=== PATIENT | female | born 1955 | race Caucasian/White ===

== ENCOUNTER → 2020-10-03 | Outpatient (CLI) | payer OTHER ==
[~2020-10-03] MED LIST: ACIDCAP9; BIOT1000 PO; CART240C3 PO; CIDA500T2 PO; DILT240C28; ELIQ5TAB PO; HYDR12.55 PO; METF10004 PO; ONGL1TAB9 PO; OXYB5TAB10; POTATAB PO
--- NOTE | 2020-10-03 15:04 | REP ---
INDICATION: CALCULUS OF KIDNEY. COMPARISON: None. FINDINGS: KUB shows the intestinal gas pattern to be nonspecific. The organ silhouettes insofar as delineated are unremarkable. There is no evidence of free intraperitoneal air. A double pigtail stent is seen on the right the proximal portion of which is in the region of the renal pelvis and the distal portion which is seen in the urinary bladder. IMPRESSION: As above <Electronically signed by Ranjeet Wood > 10/03/20 1500
== END ==
LOC: M PLAIMG 12:53
PROVIDERS: ATTEND Nurse Practitioner Family
DX: N20.0 Calculus of kidney (principal); Z96.0 Presence of urogenital implants
CPT/HCPCS: 74018; G0463

== ENCOUNTER → 2020-10-16 | Outpatient (REF) | payer OTHER ==
[2020-10-16 13:50] LABS: APPEARANCE, URINE TURBID (CLEAR); BACTERIA, URINE AUTO 3+ (NEGATIVE); BILIRUBIN, URINE AUTO NEGATIVE (NEGATIVE); BLOOD, URINE BLOOD 3+ (NEGATIVE); COLOR, URINE AMBER (YELLOW); GLUCOSE, URINE (UA) AUTO NEGATIVE (NEGATIVE); KETONE, URINE AUTO NEGATIVE (NEGATIVE); LEUKOCYTE ESTERASE, URINE AUTO 3+ (NEGATIVE); MUCUS, URINE SMALL (NEGATIVE); NITRITE, URINE AUTO NEGATIVE (NEGATIVE); PROTEIN, URINE AUTO 3+ mg/dL (NEGATIVE); RBC, URINE AUTO TNTC /HPF (0-3); SPECIFIC GRAVITY URINE AUTO 1.015 (1.002-1.035); SQUAMOUS EPITHELIAL CELL UR AU 2 /HPF (0-6); UROBILINOGEN, URINE AUTO 0.2 mg/dL (0.0-2.0); WBC, URINE AUTO TNTC /HPF (0-3)
== END ==
LOC: M SMT 12:51
PROVIDERS: ATTEND Nurse Practitioner Women's Health
DX: N20.0 Calculus of kidney (principal)

== ENCOUNTER 2020-10-17 11:31 | Inpatient (IN) | payer OTHER ==
[~2020-10-17] VITALS: Ht 160 cm; Wt 103.4 kg
[2020-10-17] MEDS ORDERED: ONDANSETRON 4MG/2ML VIAL IV ONE (16:55)
[2020-10-17] MEDS ORDERED: NS 1,000 ML IV ONE (16:55)
[2020-10-17] MEDS ORDERED: MORPHINE 4 MG/ML 1ML VIAL/SYRINGE (J2270) IV ONE (17:00)
[2020-10-17 17:39] LABS: BASO % 0.2 % (0.0-1.0); EOS % 0.2 % (0.0-3.0); HEMATOCRIT 36.1 % (36.0-47.0); HEMOGLOBIN 10.9 g/dl (12.0-15.5); LYMPH # 0.8 10^3/uL (1.5-5.0); LYMPH % 4.3 % (24.0-44.0); MEAN CORPUSCULAR HEMOGLOBIN 20.1 pg (27.0-33.0); MEAN CORPUSCULAR HGB CONC 30.2 g/dl (32.0-36.5); MEAN CORPUSCULAR VOLUME 66.5 fl (80.0-96.0); MONO # 1.5 10^3/uL (0.0-0.8); MONO % 7.8 % (2.0-8.0); NEUTROPHILS # 16.3 10^3/uL (1.5-8.5); NEUTROPHILS % 86.1 % (36.0-66.0); PLATELET COUNT, AUTOMATED 268 10^3/uL (150-450); RED BLOOD COUNT 5.43 10^6/uL (4.00-5.40); WHITE BLOOD COUNT 18.9 10^3/uL (4.0-10.0)
[2020-10-17 18:08] LABS: ALBUMIN 2.3 GM/DL (3.2-5.2); ALT/SGPT 22 U/L (12-78); BILIRUBIN,DIRECT 0.2 MG/DL (0.0-0.2); BILIRUBIN,TOTAL 0.5 MG/DL (0.2-1.0); BLOOD UREA NITROGEN 70 MG/DL (7-18); CALCIUM LEVEL 9.2 MG/DL (8.8-10.2); CARBON DIOXIDE LEVEL 21 MEQ/L (21-32); CHLORIDE LEVEL 100 MEQ/L (98-107); CK-MB VALUE MASS < 1.0 NG/ML (<3.6); CPK CREATINE PHOSPHOKINASE 28 U/L (26-192); CREATININE FOR GFR 3.38 MG/DL (0.55-1.30); GLOMERULAR FILTRATION RATE 14.4 (>45); GLUCOSE, FASTING 87 MG/DL (70-100); LIPASE 159 U/L (73-393); MB/CK RELATIVE INDEX 3.57 (< OR =4); POTASSIUM SERUM 3.8 MEQ/L (3.5-5.1); SODIUM LEVEL 134 MEQ/L (136-145); TROPONIN I 0.16 NG/ML (< 0.10)
[2020-10-17] MEDS ORDERED: cefTRIAXone SOD 2 GM in D5W MINI-BAG PLUS 50 ML IV ONE (18:20)
--- NOTE | 2020-10-17 18:22 | REPVR ---
PROCEDURE INFORMATION: Exam: CT Abdomen And Pelvis Without Contrast Exam date and time: 10/17/2020 5:03 PM Age: 65 years old Clinical indication: Abdominal pain; Flank; Right; Additional info: Right flank pain; HX of stones with stent placed TECHNIQUE: Imaging protocol: Computed tomography of the abdomen and pelvis without contrast. Radiation optimization: All CT scans at this facility use at least one of these dose optimization techniques: automated exposure control; mA and/or kV adjustment per patient size (includes targeted exams where dose is matched to clinical indication); or iterative reconstruction. COMPARISON: CR Abdomen,Flat Plate KUB 10/03/2020 1:58 PM FINDINGS: Lungs: There is discoid atelectasis in the lung bases. Heart: The heart is top-normal in size and there is no pericardial effusion. Liver: Normal appearing liver. Gallbladder and bile ducts: The patient is status post cholecystectomy. Pancreas: Normal pancreas. Spleen: Normal spleen. Adrenal glands: Normal adrenal glands. Kidneys and ureters: There is a 6 mm calcified stone lower pole the right kidney. There is a bubble of air in the upper pole collecting system right kidney. There is an 8 mm calcified stone lower pole of the left kidney. A right-sided stent is in place and coiled in the lower portion of the right renal pelvis following the right ureter and coiled within the lower portion of the urinary bladder. There is hazy increased density along the course of the right ureter and suspicious for changes of pyelonephritis and ureteritis. There is a lobular area of the upper pole the right kidney probably the result of a cyst. However, the patient should have a CT scan with IV contrast to ensure that this is a cyst and exclude any possibility of a solid mass. The inflammation following the right ureter also contacts the tip of the appendix. Stomach and bowel: Unremarkable. No obstruction. No mucosal thickening. Appendix: No evidence of appendicitis. Intraperitoneal space: There is no evidence of pneumoperitoneum. Vasculature: There is calcification in narrowing at the origin of the SMA and both renal arteries. There is prominent calcification of the aorta consistent with severe atherosclerotic changes. Lymph nodes: Unremarkable. No enlarged lymph nodes. Urinary bladder: There are small bubbles of air within the urinary bladder. Reproductive: Unremarkable as visualized. Bones/joints: There is anterior osteophyte formation throughout the lumbar spine. Soft tissues: Unremarkable. IMPRESSION: 1. There is a stent within the right ureter. 2. 6 mm calcified stone lower pole the right kidney and 8 mm calcified stone lower pole left kidney. 3. Hazy stranding density along the right renal pelvis and following the right ureter is probably secondary to ureteritis and pyelonephritis. No evidence of obstruction at this time. 4. Lobulation of the border of the right kidney could be a cyst. To exclude a solid mass recommend CT scan with contrast. COMMENTS: Consistent with the [employer]'s Incidental Findings Committee white paper (J Am Yamilet Radiol 2018): Any incidental renal lesion less than 1 cm or classified as too small to characterize, or any incidental cystic renal lesion characterized as simple-appearing, is likely benign. No follow-up imaging is recommended for these lesions per consensus recommendations based on imaging criteria. Electronically signed by: Jj Anglin On 10/17/2020 18:21:43 PM
[2020-10-17] MEDS: NS 1,000 ML IV SCH ×2 (18:51→22:20)
--- NOTE | 2020-10-17 19:07 | ECGEPIP ---
[facility] - ED Test Date: 2020-10-17 Pat Name: VIVIAN LEGER Department: Room: - Gender: Female Critical Care Unit Nurse: RIANNA : 1955 Requested By: TEOFILO BALL Order Number: [id number] Reading MD: Karely Raymond Measurements Intervals [place] Rate: 112 P: CT: QRS: 44 QRSD: 92 T: -82 QT: 320 QTc: 436 Interpretive Statements Atrial fibrillation with rapid ventricular response Nonspecific ST and T wave abnormality No prior Electronically Signed on 10-17-2020 19:07:07 EDT by Karely Raymond
[2020-10-17] MEDS ORDERED: HOME MED LIST COMPLETE! XX SCH (19:50)
[2020-10-17 20:24] LABS: MB/CK RELATIVE INDEX 3.12 (< OR =4); TROPONIN I 0.17 NG/ML (< 0.10)
[2020-10-17] MEDS ORDERED: MORPHINE 2 MG/ML 1ML VIAL (J2270) IV PRN (21:00)
[2020-10-17] MEDS: APIXABAN 5 MG TAB (ELIQUIS) PO SCH (21:00)
[2020-10-17 21:16] LABS: RSV AMPLIFICATION NEGATIVE (NEGATIVE)
--- NOTE | 2020-10-17 22:15 | HPEPDOC ---
General Date of Admission Oct 17, 2020 at 20:41 Date of Service: Oct 17, 2020 Chief Complaint Right flank pain, pain with urination, blood in urine Source: Patient, Old records Exam Limitations: No limitations Timing/Duration: Day(s), Intermittent Severity: Moderate History of Present Illness Ms. Neal is a very pleasant 65 year old female with past medical history of a. fib s/p cardiac ablation and nephrolithiasis as well as ureteral stone s/p stent placement presented to the ED due to right flank and groin pain for about a month and fever, chills, hematuria, dysuria, , urinary hesitation, and diarr hea that started since 10/14/2020. She said that she had right stent placed in [facility] on 09/11/2020, and that due to insurance reasons, she established care with [facility] urology center later on. She is planned to have uretroscopy on 10/25/20, and she said the stent is planed to be removed on that day. Right flank pain is a stabbing, intermittent, 9/10 pain with alleviating factor of Tylenol or morphine; aggravating factor as laying on left side and while having bowel movement. She urinates about 3 times a day with small amount of urine, less frequent than usual. She drinks at least 0.5 gallon per day. She had a straight cath yesterday at the urology office. Denies recent ntibiotics use, sick contact, travel history. She said she had colonoscopy done in [place] years ago without concerns including diverticulosis and a negative cologuard within 3 years. She denies prolonged immobilazation after stent surgery Home Medications Scheduled Apixaban (Eliquis) 5 Mg Tablet, 5 MG PO BID, (Reported) Biotin (Biotin) 1 Mg Tablet, 1 MG PO DAILY, (Reported) Diltiazem HCl (Cartia Xt) 240 Mg Cap.er.24h, 240 MG PO DAILY, (Reported) Glucosamine/Chondr Tellez A Sod (Cidaflex Tablet) 1 Each Tablet, 1 TAB PO BID, (Reported) Hydrochlorothiazide (Hydrochlorothiazide) 12.5 Mg Tablet, 12.5 MG PO DAILY, (Reported) Metformin HCl (Metformin HCl) 1,000 Mg Tablet, 1,000 MG PO BID, (Reported) Potassium Gluconate (Potassium Gluconate) 99 Mg Tablet.er, 99 MG PO DAILY, (Reported) Saxagliptin HCl (Onglyza) 5 Mg Tablet, 5 MG PO DAILY, (Reported) Allergies Coded Allergies: amiodarone (Verified Allergy, Mild, RASH, 10/15/20) rivaroxaban (Verified Allergy, Mild, RASH, 10/15/20) Past Medical History Medical History Diabetes mellitus type 2 Atrial fibrillation Hypertension Bilateral shoulder and hip osteoarthritis Nephrolithiasis/ureteral stone Surgical History Stent placement in 2013 for calculus Complete hysterectomy Cardiac ablation Cyst removal from ankle Right elbow repair surgery Family History Mother has type 2 diabetes mellitus Father had kidney malignancy and has one kidney removed Social History * Smoker: Denies, former Smoker (Quit 22 years ago) Alcohol: occationally Drugs: marijuana (marijuna guming) Recent Travel/Sick Contacts: Denies: Recent travel, Recent sick contacts lives at home with partner A-FIB/CHADSVASC A-FIB History Current/History of A-Fib/PAF?: Yes Current PO Anticoag Therapy: Yes Age/Risk Factor Scoring CHADSVASC: CHADSVASC Response (Comments) Value Age Risk Factor Age 65-74 years old 1 Gender Risk Factor Female 1 Hx of CHF No 0 Hx of HTN Yes 1 Hx of Stroke/TIA/or VTE No 0 Hx of Diabetes Yes 1 Hx of Vascular Disease No 0 Total 4 Review of Systems Constitutional: Reports: Chills, Fever Pulmonary: Denies: Dyspnea, Cough Cardiovascular: Denies: Chest Pain, Palpitations, Edema Gastrointestinal: Reports: Abdominal Pain (right lower pelvic region, and in bilateral lower quadrants while having bowel movement), Diarrhea, Hematochezia; Denies: Nausea, Vomiting, Constipation, Melena Genitourinary: Reports: Dysuria, Hematuria (urinary hesitancy), Other Symptoms; Denies: Frequency Endocrine: Denies: Polyuria Musculoskeletal: Reports: Joint Pain (chronic bilateral shoulder and hip pain) Neurological: Denies: Weakness, Numbness Psych: Denies: Thoughts of Self Harm, Thoughts of Harming Other Physical Examination General Exam: Positive: Alert, Mild Distress Eye Exam: Positive: Conjunctiva & lids normal; Negative: Sclera icteric ENT Exam: Positive: Atraumatic Neck Exam: Positive: Supple Chest Exam: Positive: Clear to auscultation, Normal air movement; Negative: Rales, Rhonchi, Wheezing Heart Exam: Positive: Tachycardic, Irregular Rhythm; Negative: Murmurs Abdomen Exam: Positive: Normal bowel sounds, Soft; Negative: Tenderness Extremity Exam: Positive: Other (negative phoebe's sign bilaterally); Negative: Edema, Tenderness, Swelling Skin Exam: Positive: Nl turgor and temperature; Negative: Breakdown Neuro Exam: Positive: Normal Speech, Normal Tone Psych Exam: Positive: Mental status NL, Mood NL, Memory Intact, Oriented x 3 Vital Signs Vital Signs Date Time Temp Pulse Resp B/P (MAP) Pulse Ox O2 Delivery O2 Flow Rate FiO2 10/17/20 21:31 122 10/17/20 21:30 94/59 (71) 10/17/20 20:46 89 10/17/20 18:46 18 Nasal Cannula 4.0 10/17/20 11:33 99.3 Laboratory Data Labs 24H Laboratory Tests 2 10/17/20 17:14: Immature Granulocyte % (Auto) 1.4, Neutrophils (%) (Auto) 86.1H, Lymphocytes (%) (Auto) 4.3L, Monocytes (%) (Auto) 7.8, Eosinophils (%) (Auto) 0.2, Basophils (%) (Auto) 0.2, Neutrophils # (Auto) 16.3H, Lymphocytes # (Auto) 0.8L, Monocytes # (Auto) 1.5H, Eosinophils # (Auto) 0.0, Basophils # (Auto) 0.0, Nucleated Red Blood Cells % (auto) 0.0, Anion Gap 13, Glomerular Filtration Rate 14.4L, Lactic Acid Level 2.0, Calcium Level 9.2, Total Bilirubin 0.5, Direct Bilirubin 0.2, Aspartate Amino Transf (AST/SGOT) 18, Alanine Aminotransferase (ALT/SGPT) 22, Alkaline Phosphatase 55, Total Creatine Kinase 28, Creatine Kinase MB < 1.0, Creatine Kinase MB Relative Index 3.57, Troponin I 0.16H, Total Protein 7.0, Albumin 2.3L, Albumin/Globulin Ratio 0.5L, Lipase 159 10/17/20 17:33: Urine Color YELLOW, Urine Appearance TURBIDH, Urine pH 5.0, Urine Specific [place] 1.011, Urine Protein 2+H, Urine Glucose (UA) NEGATIVE, Urine Ketones NEGATIVE, Urine Blood 3+H, Urine Nitrite NEGATIVE, Urine Bilirubin NEGATIVE, Urine Urobilinogen 0.2, Urine Leukocyte Esterase 3+H, Urine WBC (Auto) TNTCH, Urine RBC (Auto) TNTCH, Urine Hyaline Casts (Auto) 0, Urine Bacteria (Auto) 3+H, Urine Squamous Epithelial Cells 0, Urine Amorphous Sediment SMALLH, Urine Sperm (Auto) 10/17/20 19:36: Coronavirus (COVID-19)(PCR) NEGATIVE, Influenza Type A (RT-PCR) NEGATIVE, Influenza Type B (RT-PCR) NEGATIVE, Respiratory Syncytial Virus (PCR) NEGATIVE 10/17/20 19:41: Total Creatine Kinase 32, Creatine Kinase MB 1.0, Creatine Kinase MB Relative Index 3.12, Troponin I 0.17H CBC/BMP Laboratory Tests 10/17/20 17:14 Microbiology Microbiology 10/17/20 Urine Culture, Received Pending 10/17/20 Blood Culture, Received Pending 10/17/20 Blood Culture, Received Pending Assessment/Plan 1. Right complicated UTI likely associated with ureteral stent and nephrolithiasis -dysuria, urinary hesitancy, right flank pain, fever, chills -UA indicated UTI, urine culture pending -Abd CT showed a stent within the right ureter, a 6 mm calcified stone right kidney,a 8 mm calcified stone left kidney; also showed hazy stranding density along right renal pelvis and right ureter, probably secondary to ureteritis and pyelonephritis -Urology consult with Dr. Hawley, and we appreciate his advice and assist in patient care. He recommends antibiotics for complicated UTI and IV fluid hydration -IV ceftriaxone, IV fluid hydration, pain control, tylenol PRN 2. JACKIE likely due to pyelonephritis -GFR 14.4 -FeUrea, osmolality, and serum osmolality ordered -IV fluid hydration -consider nephrology consult in the morning 3. Diabetes mellitus type 2 -hold home medication - insulin, glucose checks, and hypglycemia protocol 4. Hypertension -hold home med hydrochlorthiazide due to JACKIE -Continue home med Diltiazem 5. A. fib -denies chest pain, palpitation, or dyspnea. Blood pressure stable -Continue home med Diltiazem and Eliquis -telemonitoring. If RVR, will add on rate-control medication 6. Questionable right kidney cyst -CT abd/pelvis showed a lobulation of the border of right kidney could be a cyst, and a CT scan with contrast was recommended -Consider CT abd/pelvis with contrast in the morning or when renal function improves DVT prophylaxis: patient on home med eliquis Plan / VTE VTE Prophylaxis Ordered?: Yes (Eliquis(home med)) GME ATTESTATION GME ATTESTATION My faculty preceptor for this patient encounter was physically present during the encounter and was fully available. All aspects of the patient interview, examination, medical decision making process, and medical care plan development were reviewed and approved by the faculty preceptor. The faculty preceptor is aware and concurs with the plan as stated in the body of this note and will attest to such by his/her cosignature. ATTENDING NOTE ISajan, have independently examined this patient and performed my own physical exam, as well as reviewed the documentation and edited where necessary. I have discussed in detail with the resident / student the findings and plan of treatment as documented by the resident / student and edited their note. I agree with their findings and treatment plan and have edited their documentation. I will continue to follow the patient during this hospital stay. GRACE PRUITT DO Oct 17, 2020 22:15 KALPANA THOMAS MD Oct 19, 2020 06:26
[2020-10-17] MEDS ORDERED: GLUCAGON INJ 1MG VIAL SC PRN (22:20)
[2020-10-17] MEDS ORDERED: GLUCOSE 4GM CHEW TABLET PO PRN (22:20)
[2020-10-17] MEDS ORDERED: DEXTROSE 50% 50 ML SYRINGE IV PRN (22:20)
[2020-10-17 23:27] VITALS: BP 128/58
[2020-10-18] VITALS: BP_SYST 105; BP_SYST 120; BP_DIAS 62
[2020-10-18 00:04] LABS: CALCIUM LEVEL 8.1 MG/DL (8.8-10.2); CREATININE FOR GFR 3.02 MG/DL (0.55-1.30); GLOMERULAR FILTRATION RATE 16.4 (>45); POTASSIUM SERUM 3.7 MEQ/L (3.5-5.1)
[2020-10-18] MEDS: ACETAMINOPHEN TAB 650MG DOSE (2X325MG) PO PRN ×3 (02:21→20:16)
[2020-10-18 04:00] VITALS: BP 124/62
[2020-10-18 05:59] LABS: HEMATOCRIT 33.2 % (36.0-47.0); HEMOGLOBIN 9.7 g/dl (12.0-15.5); MEAN CORPUSCULAR HGB CONC 29.2 g/dl (32.0-36.5); MEAN CORPUSCULAR VOLUME 68.3 fl (80.0-96.0); PLATELET COUNT, AUTOMATED 245 10^3/uL (150-450); RED BLOOD COUNT 4.86 10^6/uL (4.00-5.40); WHITE BLOOD COUNT 14.1 10^3/uL (4.0-10.0)
[2020-10-18 06:22] LABS: CALCIUM LEVEL 8.1 MG/DL (8.8-10.2); CREATININE FOR GFR 2.59 MG/DL (0.55-1.30); GLOMERULAR FILTRATION RATE 19.6 (>45); POTASSIUM SERUM 3.5 MEQ/L (3.5-5.1)
[2020-10-18] MEDS: HumaLOG INSULIN (NovoLOG) PER UNIT SC SCH ×4 (07:30→20:18)
[2020-10-18 08:00] VITALS: BP 117/78
--- NOTE | 2020-10-18 08:00 | SMCUROLCON ---
Urology Consultation General Date of Consultation 10/18/20 Reason For Consultation asked to see re complicated uti History of Present Illness Pt had right stent placed outside of [place] for small distal right ureteral stone. Transferred care to [facility] for insurance reasons. Seen in office on 10/03/20 and ureteroscopy was scheduled. Now in [facility] with complicated uti, right pyelonephritis. Ct reviewed. Stent in proper position. Stone in each kidney. No hydronephrosis. No right ureteral stone noted. Wbc elevated and creatinine elevated. Admitted for complicated uti and urology asked to see. Medications Current Medications Current Medications Medications (Trade) Dose Ordered Sig/Moses Route PRN Reason Start Time Stop Time Status Last Admin Dose Admin Acetaminophen (Tylenol Tab) 650 mg Q4H PRN PO MILD PAIN or TEMP > 101 10/17/20 20:45 10/18/20 02:21 Apixaban (Eliquis) 5 mg BID PO 10/17/20 21:00 Ceftriaxone Sodium 1 gm/ Dextrose 50 ml @ 100 mls/hr Q24H IV 10/18/20 18:00 Dextrose (Dextrose 50%) 25 ml ASDIRECTED PRN IV SEE LABEL COMMENTS 10/17/20 22:20 Diltiazem HCl (Cardizem Cd) 240 mg DAILY PO 10/18/20 09:00 Glucagon (Glucagon) 1 mg ASDIRECTED PRN SC SEE LABEL COMMENTS 10/17/20 22:20 Glucose (Glucose) 16 GM ASDIRECTED PRN PO SEE LABEL COMMENTS 10/17/20 22:20 Home Med (Home Med List Complete!) ASDIRECTED XX 10/17/20 19:50 10/17/20 19:52 DC Insulin Human Lispro (HumaLOG INSULIN) See Protocol Table AC SC 10/18/20 07:30 Insulin Human Lispro (HumaLOG INSULIN) See Protocol Table QHS SC 10/18/20 21:00 Morphine Sulfate (Morphine Sulfate Inj) 2 mg Q4HP PRN IV MODERATE/SEVERE PAIN (PS 5-10) 10/17/20 21:00 Sodium Chloride 1,000 ml @ 150 mls/hr Q6H40M IV 10/18/20 00:00 10/18/20 00:00 Sodium Chloride 1,000 ml @ 250 mls/hr Q4H IV 10/17/20 18:20 10/18/20 01:42 DC 10/17/20 18:51 Allergies Allergies: Coded Allergies: amiodarone (Verified Allergy, Mild, RASH, 10/15/20) rivaroxaban (Verified Allergy, Mild, RASH, 10/15/20) Vital Signs/I&O Vital Signs Date Time Temp Pulse Resp B/P (MAP) Pulse Ox O2 Delivery O2 Flow Rate FiO2 10/18/20 04:00 2.0 10/18/20 04:00 98.6 86 16 124/62 (82) 95 Nasal Cannula I&O- Last 24 Hours up to 6 AM 10/18/20 05:59 Intake Total 1810 ml Output Total 350 ml Balance 1460 ml Laboratory Data 24H Labs Laboratory Tests 2 10/17/20 17:14: Immature Granulocyte % (Auto) 1.4, Neutrophils (%) (Auto) 86.1H, Lymphocytes (%) (Auto) 4.3L, Monocytes (%) (Auto) 7.8, Eosinophils (%) (Auto) 0.2, Basophils (%) (Auto) 0.2, Neutrophils # (Auto) 16.3H, Lymphocytes # (Auto) 0.8L, Monocytes # (Auto) 1.5H, Eosinophils # (Auto) 0.0, Basophils # (Auto) 0.0, Nucleated Red Blood Cells % (auto) 0.0, Anion Gap 13, Glomerular Filtration Rate 14.4L, Lactic Acid Level 2.0, Calcium Level 9.2, Total Bilirubin 0.5, Direct Bilirubin 0.2, Aspartate Amino Transf (AST/SGOT) 18, Alanine Aminotransferase (ALT/SGPT) 22, Alkaline Phosphatase 55, Total Creatine Kinase 28, Creatine Kinase MB < 1.0, Creatine Kinase MB Relative Index 3.57, Troponin I 0.16H, Total Protein 7.0, Albumin 2.3L, Albumin/Globulin Ratio 0.5L, Lipase 159 10/17/20 17:33: Urine Color YELLOW, Urine Appearance TURBIDH, Urine pH 5.0, Urine Specific [place] 1.011, Urine Protein 2+H, Urine Glucose (UA) NEGATIVE, Urine Ketones NEGATIVE, Urine Blood 3+H, Urine Nitrite NEGATIVE, Urine Bilirubin NEGATIVE, Uri ne Urobilinogen 0.2, Urine Leukocyte Esterase 3+H, Urine WBC (Auto) TNTCH, Urine RBC (Auto) TNTCH, Urine Hyaline Casts (Auto) 0, Urine Bacteria (Auto) 3+H, Urine Squamous Epithelial Cells 0, Urine Amorphous Sediment SMALLH, Urine Sperm (Auto) 10/17/20 19:36: Coronavirus (COVID-19)(PCR) NEGATIVE, Influenza Type A (RT-PCR) NEGATIVE, Influenza Type B (RT-PCR) NEGATIVE, Respiratory Syncytial Virus (PCR) NEGATIVE 10/17/20 19:41: Total Creatine Kinase 32, Creatine Kinase MB 1.0, Creatine Kinase MB Relative Index 3.12, Troponin I 0.17H 10/17/20 23:33: Anion Gap 9, Glomerular Filtration Rate 16.4L, Osmolality 301, Calcium Level 8.1L, Troponin I 0.13#H 10/18/20 05:29: Anion Gap 8, Glomerular Filtration Rate 19.6L, Calcium Level 8.1L, Nucleated Red Blood Cells % (auto) 0.0 CBC/BMP Laboratory Tests 10/17/20 17:14 10/17/20 23:33 10/18/20 05:29 Microbiology Microbiology 10/17/20 Urine Culture, Received Pending 10/17/20 Blood Culture, Received Pending 10/17/20 Blood Culture, Received Pending Assessment Complicated uti. Urine cx 10/16/20 obtained in the office grew E coli sensitive to Rocephin, nitrofurantoin and Bactrim but no Levaquin. Pt currently on Rocephin. Wbc and creatinine have come down already. Plan Treat complicated uti. Will check as to when ureteroscopy is scheduled. Will see pt later today. thank you [phone] MELONIE TONY MD Oct 18, 2020 08:00
[2020-10-18] MEDS: APIXABAN 5 MG TAB (ELIQUIS) PO SCH ×2 (09:00→20:17)
[2020-10-18] MEDS: NS 1,000 ML IV SCH ×3 (10:13→16:12)
--- NOTE | 2020-10-18 10:20 | IPNPDOC ---
Date Seen The patient was seen on 10/18/20. Progress Note pt seen and examined sitting at bedside doesn't look sick states she feels much better than yesterday avss creat elevated but down from admit wbc down cx's pending recent cx E coli sensitive to Rocephin, Macrobid and Bactrim no gu intervention needed continue treatment of complicated uti suspect creatinine will continue to decrease scheduled for surgery in 11/12, ureteroscopy I believe thank you [phone] VS, I&O, 24H, Tara Vital Signs/I&O Vital Signs Date Time Temp Pulse Resp B/P (MAP) Pulse Ox O2 Delivery O2 Flow Rate FiO2 10/18/20 10:12 103 117/78 10/18/20 08:00 97.0 16 91 Nasal Cannula 2.0 I&O- Last 24 Hours up to 6 AM 10/18/20 06:00 Intake Total 1990 ml Output Total 425 ml Balance 1565 ml Laboratory Data 24H LABS Laboratory Tests 2 10/17/20 17:14: Immature Granulocyte % (Auto) 1.4, Neutrophils (%) (Auto) 86.1H, Lymphocytes (%) (Auto) 4.3L, Monocytes (%) (Auto) 7.8, Eosinophils (%) (Auto) 0.2, Basophils (%) (Auto) 0.2, Neutrophils # (Auto) 16.3H, Lymphocytes # (Auto) 0.8L, Monocytes # (Auto) 1.5H, Eosinophils # (Auto) 0.0, Basophils # (Auto) 0.0, Nucleated Red Blood Cells % (auto) 0.0, Anion Gap 13, Glomerular Filtration Rate 14.4L, Lactic Acid Level 2.0, Calcium Level 9.2, Total Bilirubin 0.5, Direct Bilirubin 0.2, Aspartate Amino Transf (AST/SGOT) 18, Alanine Aminotransferase (ALT/SGPT) 22, Al kaline Phosphatase 55, Total Creatine Kinase 28, Creatine Kinase MB < 1.0, Creatine Kinase MB Relative Index 3.57, Troponin I 0.16H, Total Protein 7.0, Albumin 2.3L, Albumin/Globulin Ratio 0.5L, Lipase 159 10/17/20 17:33: Urine Color YELLOW, Urine Appearance TURBIDH, Urine pH 5.0, Urine Specific [place] 1.011, Urine Protein 2+H, Urine Glucose (UA) NEGATIVE, Urine Ketones NEGATIVE, Urine Blood 3+H, Urine Nitrite NEGATIVE, Urine Bilirubin NEGATIVE, Urine Urobilinogen 0.2, Urine Leukocyte Esterase 3+H, Urine WBC (Auto) TNTCH, Urine RBC (Auto) TNTCH, Urine Hyaline Casts (Auto) 0, Urine Bacteria (Auto) 3+H, Urine Squamous Epithelial Cells 0, Urine Amorphous Sediment SMALLH, Urine Sperm (Auto) 10/17/20 19:36: Coronavirus (COVID-19)(PCR) NEGATIVE, Influenza Type A (RT-PCR) NEGATIVE, Influenza Type B (RT-PCR) NEGATIVE, Respiratory Syncytial Virus (PCR) NEGATIVE 10/17/20 19:41: Total Creatine Kinase 32, Creatine Kinase MB 1.0, Creatine Kinase MB Relative Index 3.12, Troponin I 0.17H 10/17/20 23:33: Anion Gap 9, Glomerular Filtration Rate 16.4L, Osmolality 301, Calcium Level 8.1L, Troponin I 0.13#H 10/18/20 05:29: Anion Gap 8, Glomerular Filtration Rate 19.6L, Calcium Level 8.1L, Nucleated Red Blood Cells % (auto) 0.0 CBC/BMP Laboratory Tests 10/17/20 17:14 10/17/20 23:33 10/18/20 05:29 Microbiology Microbiology 10/17/20 Urine Culture, Received Pending 10/17/20 Blood Culture, Received Pending 10/17/20 Blood Culture, Received Pending MELONIE TONY MD Oct 18, 2020 10:20
[2020-10-18 12:00] VITALS: BP 127/63
[2020-10-18 16:00] VITALS: BP 161/87
[2020-10-18] MEDS ORDERED: FAMOTIDINE 20 MG TAB PO PRN (16:30)
[2020-10-18] MEDS: cefTRIAXone SOD 1 GM in D5W MINI-BAG PLUS 50 ML IV SCH (17:16)
--- NOTE | 2020-10-18 19:02 | IPNPDOC ---
Subjective Date Seen The patient was seen on 10/18/20. Subjective Chief Complaint/HPI Mrs. Neal is a 65-year-old female with atrial fibrillation on Eliquis, diabetes mellitus type 2, and history of nephrolithiasis who is here for right flank pain and found to have right pyelonephritis. Patient was seen this morning. She is feeling much better and the pain is improved. Denies any chest pain or shortness of breath. Urology saw patient. No surgical interventions at this time and recommended continue antibiotics. Objective Physical Examination General Exam: Positive: Alert, Cooperative Eye Exam: Negative: Sclera icteric ENT Exam: Positive: Atraumatic Neck Exam: Positive: Supple Chest Exam: Positive: Clear to auscultation Heart Exam: Positive: Rate Normal, Irregular Rhythm Abdomen Exam: Positive: Normal bowel sounds, Soft; Negative: Tenderness Extremity Exam: Negative: Edema Neuro Exam: Positive: Normal Speech Psych Exam: Positive: Mental status NL, Mood NL Assessment /Plan Assessment Mrs. Neal is a 65-year-old female with atrial fibrillation on Eliquis, diabetes mellitus type 2, and history of nephrolithiasis who is here for right flank pain and found to have right pyelonephritis. Right pyelonephritis complicated by nephrolithiasis and right ureteral stent. Urology was consulted, recommendations appreciated. Recommended continuing antibiotics and keeping surgery date of 11/12/2020. We will continue waiting for urine cultures. Plan/VTE VTE Prophylaxis Ordered?: Yes (Eliquis(home med)) Plan 1. Right pyelonephritis complicated by stent and nephrolithiasis Urology consulted, recommendation appreciated No surgical intervention at this time. Keep appointment on 11/12/2020 Continue antibiotics Ceftriaxone day 2 2. JACKIE Patient's baseline creatinine unknown On admission creatinine was 3.38 Creatinine improving with IV fluids 3. Diabetes mellitus type 2 Continue sliding scale insulin and hypoglycemic protocol 4. Hypertension Continue to hold hydrochlorothiazide due to JACKIE Continue diltiazem and metoprolol 5. Atrial fibrillation Continue diltiazem and metoprolol Continue Eliquis 6. GERD Do not have cimetidine here. Will substitute with famotidine 7. DVT prophylaxis Continue Eliquis as there is no procedure Disposition: Pending improvement in renal function and urine culture results VS, I&O, 24H, Fishbone Vital Signs/I&O Vital Signs Date Time Temp Pulse Resp B/P (MAP) Pulse Ox O2 Delivery O2 Flow Rate FiO2 10/18/20 16:00 97.0 100 18 161/87 (111) 92 Nasal Cannula 2.0 I&O- Last 24 Hours up to 6 AM 10/18/20 06:00 Intake Total 1990 ml Output Total 425 ml Balance 1565 ml Laboratory Data 24H LABS Laboratory Tests 2 10/17/20 19:36: Coronavirus (COVID-19)(PCR) NEGATIVE, Influenza Type A (RT-PCR) NEGATIVE, Influenza Type B (RT-PCR) NEGATIVE, Respiratory Syncytial Virus (PCR) NEGATIVE 10/17/20 19:41: Total Creatine Kinase 32, Creatine Kinase MB 1.0, Creatine Kinase MB Relative Index 3.12, Troponin I 0.17H 10/17/20 23:33: Troponin I 0.13#H, Anion Gap 9, Glomerular Filtration Rate 16.4L, Osmolality 301, Calcium Level 8.1L 10/18/20 05:29: Anion Gap 8, Glomerular Filtration Rate 19.6L, Calcium Level 8.1L, Nucleated Red Blood Cells % (auto) 0.0 10/18/20 11:58: Bedside Glucose (Misc Panel) 113 10/18/20 17:04: Bedside Glucose (Misc Panel) 120H CBC/BMP Laboratory Tests 10/17/20 23:33 10/18/20 05:29 Microbiology Microbiology 10/17/20 Urine Culture, Received Pending 10/17/20 Blood Culture - Preliminary, Resulted No growth after 24 hours . All specim... 10/17/20 Blood Culture - Preliminary, Resulted No growth after 24 hours . All specim... JESSICA HANCOCK DO Oct 18, 2020 19:02
[2020-10-18 20:00] VITALS: BP 114/70
--- NOTE | 2020-10-18 21:17 | ECGEPIP ---
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
[2020-10-19] VITALS: BP 120/74
[2020-10-19] MEDS: NS 1,000 ML IV SCH ×2 (01:13→12:29)
[2020-10-19 03:43] LABS: OSMOLALITY URINE 333 MOSM/KG (50-1400)
[2020-10-19 03:53] LABS: UREA NITROGEN RANDOM URINE 443 MG/DL
[2020-10-19 04:00] VITALS: BP 122/66
[2020-10-19 04:04] LABS: HEMATOCRIT 31.9 % (36.0-47.0); HEMOGLOBIN 9.4 g/dl (12.0-15.5); MEAN CORPUSCULAR HGB CONC 29.5 g/dl (32.0-36.5); PLATELET COUNT, AUTOMATED 247 10^3/uL (150-450); RED BLOOD COUNT 4.69 10^6/uL (4.00-5.40); WHITE BLOOD COUNT 11.1 10^3/uL (4.0-10.0)
[2020-10-19 04:25] LABS: CALCIUM LEVEL 8.2 MG/DL (8.8-10.2); CREATININE FOR GFR 1.72 MG/DL (0.55-1.30); GLOMERULAR FILTRATION RATE 31.5 (>45); POTASSIUM SERUM 3.3 MEQ/L (3.5-5.1)
[2020-10-19] MEDS ORDERED: POTASSIUM CHLORIDE 10 MEQ SR TABLET PO ONE ×2 (05:00→09:00)
[2020-10-19 08:00] VITALS: BP 129/79
[2020-10-19] MEDS: HumaLOG INSULIN (NovoLOG) PER UNIT SC SCH ×4 (08:21→20:51)
[2020-10-19] MEDS: APIXABAN 5 MG TAB (ELIQUIS) PO SCH ×2 (08:21→20:29)
[2020-10-19] MEDS: ACETAMINOPHEN TAB 650MG DOSE (2X325MG) PO PRN ×2 (08:22→17:35)
[2020-10-19 08:35] LABS: MAGNESIUM LEVEL 1.8 MG/DL (1.8-2.4)
[2020-10-19] MEDS ORDERED: MAG SULF 1GM/100ML (MAG RUN) 1 GM in IV 1 EA IV ONE (11:00)
[2020-10-19 12:00] VITALS: BP 114/89
[2020-10-19 16:00] VITALS: BP 137/72
[2020-10-19 16:42] LABS: CALCIUM LEVEL 8.4 MG/DL (8.8-10.2); CREATININE FOR GFR 1.47 MG/DL (0.55-1.30); GLOMERULAR FILTRATION RATE 37.7 (>45); POTASSIUM SERUM 3.9 MEQ/L (3.5-5.1)
--- NOTE | 2020-10-19 17:06 | IPNPDOC ---
Subjective Date Seen The patient was seen on 10/19/20. Subjective Chief Complaint/HPI Mrs. Neal is a 65-year-old female with atrial fibrillation on Eliquis, diabetes mellitus type 2, and history of nephrolithiasis who is here for right flank pain and found to have right pyelonephritis. This morning, patient is feeling better. Denies chest pain or dyspnea, but still have occasional pain from the right flank. Urine culture grew E.coli. Patient denies any knowledge of renal dysfunction. Creatinine much improved compared to admission, but still elevated. Rechecked creatinine in the afternoon. Still not at goal. Discussed with patient, and she is okay staying tonight. Objective Physical Examination General Exam: Positive: Alert Eye Exam: Positive: Conjunctiva & lids normal; Negative: Sclera icteric ENT Exam: Positive: Atraumatic Neck Exam: Positive: Supple Chest Exam: Positive: Clear to auscultation; Negative: Rales, Rhonchi, Wheezing Heart Exam: Positive: Rate Normal, Irregular Rhythm Abdomen Exam: Positive: Normal bowel sounds, Soft; Negative: Tenderness Extremity Exam: Negative: Edema Neuro Exam: Positive: Normal Speech Psych Exam: Positive: Mental status NL, Mood NL Assessment /Plan Assessment Mrs. Neal is a 65-year-old female with atrial fibrillation on Eliquis, diabetes mellitus type 2, and history of nephrolithiasis who is here for right flank pain and found to have right pyelonephritis. Right pyelonephritis comp licated by nephrolithiasis and right ureteral stent. Urology was consulted, recommendations appreciated. Recommended continuing antibiotics and keeping surgery date of 11/12/2020. Urine culture grew E.coli. Plan for cefdinir on discharge. Renal function not at goal. Will continue with IVF. Plan/VTE VTE Prophylaxis Ordered?: Yes (Eliquis(home med)) Plan 1. Right pyelonephritis complicated by stent and nephrolithiasis Urology consulted, recommendation appreciated No surgical intervention at this time. Keep appointment on 11/12/2020 Continue antibiotics Ceftriaxone day 3 2. JACKIE Patient's baseline creatinine unknown. Denies any CKD On admission creatinine was 3.38 Creatinine improving with IV fluids 3. Diabetes mellitus type 2 Continue sliding scale insulin and hypoglycemic protocol 4. Hypertension Continue to hold hydrochlorothiazide due to JACKIE Continue diltiazem and metoprolol 5. Atrial fibrillation Continue diltiazem and metoprolol Continue Eliquis 6. GERD Do not have cimetidine here. Will substitute with famotidine 7. DVT prophylaxis Continue Eliquis as there is no procedure Disposition: Pending improvement in renal function. Anticipate creatinine to reach goal by tomorrow morning if continues with IVF. Possible discharge tomorrow morning. VS, I&O, 24H, Fishbone Vital Signs/I&O Vital Signs Date Time Temp Pulse Resp B/P (MAP) Pulse Ox O2 Delivery O2 Flow Rate FiO2 10/19/20 16:00 97.9 67 14 137/72 (93) 93 Room Air 10/19/20 00:00 2.0 I&O- Last 24 Hours up to 6 AM 10/19/20 06:00 Intake Total 1800 ml Output Total 2325 ml Balance -525 ml Laboratory Data 24H LABS Laboratory Tests 2 10/18/20 17:04: Bedside Glucose (Misc Panel) 120H 10/18/20 20:13: Bedside Glucose (Misc Panel) 114 10/19/20 03:35: Nucleated Red Blood Cells % (auto) 0.0, Anion Gap 8, Glomerular Filtration Rate 31.5L, Calcium Level 8.2L, Magnesium Level 1.8 10/19/20 11:30: Bedside Glucose (Misc Panel) 152H 10/19/20 15:48: Anion Gap 8, Glomerular Filtration Rate 37.7L, Calcium Level 8.4L CBC/BMP Laboratory Tests 10/19/20 03:35 10/19/20 15:48 Microbiology Microbiology 10/17/20 Urine Culture - Final, Complete Escherichia Coli 10/17/20 Blood Culture - Preliminary, Resulted No growth after 24 hours . All specim... 10/17/20 Blood Culture - Preliminary, Resulted No growth after 24 hours . All specim... JESSICA HANCOCK DO Oct 19, 2020 17:06
[2020-10-19] MEDS: cefTRIAXone SOD 1 GM in D5W MINI-BAG PLUS 50 ML IV SCH (17:36)
[2020-10-19] MEDS ORDERED: MIRALAX *UNIT DOSE* 17GM PACKET PO PRN (18:00)
[2020-10-19 20:00] VITALS: BP 104/53
[2020-10-19] MEDS: DOCUSATE SODIUM 100MG CAPSULE PO SCH (20:28)
[2020-10-20] VITALS: BP 133/79
[2020-10-20] MEDS: NS 1,000 ML IV SCH (02:03)
[2020-10-20 04:00] VITALS: BP 145/91
[2020-10-20 06:03] LABS: HEMATOCRIT 31.3 % (36.0-47.0); HEMOGLOBIN 9.3 g/dl (12.0-15.5); MEAN CORPUSCULAR HEMOGLOBIN 20.2 pg (27.0-33.0); MEAN CORPUSCULAR HGB CONC 29.7 g/dl (32.0-36.5); PLATELET COUNT, AUTOMATED 294 10^3/uL (150-450); WHITE BLOOD COUNT 11.3 10^3/uL (4.0-10.0)
[2020-10-20 06:24] LABS: CALCIUM LEVEL 8.4 MG/DL (8.8-10.2); CREATININE FOR GFR 1.22 MG/DL (0.55-1.30); GLOMERULAR FILTRATION RATE 46.8 (>45); POTASSIUM SERUM 3.8 MEQ/L (3.5-5.1)
[2020-10-20] MEDS ORDERED: CEFD300C PO (07:53)
[2020-10-20 08:00] VITALS: BP 128/88
[2020-10-20] MEDS: DOCUSATE SODIUM 100MG CAPSULE PO SCH (08:40)
[2020-10-20 08:51] VITALS: BP 128/88
[2020-10-20] MEDS: HumaLOG INSULIN (NovoLOG) PER UNIT SC SCH (08:51)
[2020-10-20] MEDS: APIXABAN 5 MG TAB (ELIQUIS) PO SCH (08:52)
--- NOTE | 2020-10-20 14:35 | DS.PDOC ---
Discharge Summary General Date of Admission Oct 17, 2020 at 20:41 Date of Discharge Oct 20, 2020 Specialist/Consultants [facility], Dr. Perera Discharge Summary PROCEDURES PERFORMED DURING STAY: None ADMITTING DIAGNOSES: 1. Right pyelonephritis complicated by stent and nephrolithiasis 2. Acute kidney injury 3. Diabetes mellitus type 2 4. Hypertension 5. Atrial fibrillation 6. GERD 7. Questionable right kidney cyst DISCHARGE DIAGNOSES: 1. Right pyelonephritis complicated by stent and nephrolithiasis 2. Acute kidney injury 3. Diabetes mellitus type 2 4. Hypertension 5. Atrial fibrillation 6. GERD 7. Questionable right kidney cyst COMPLICATIONS/CHIEF COMPLAINT: Atrial Fibrillation W/ Rvr, Pyelonephritis. HISTORY OF PRESENT ILLNESS: Copied from admitting attending's H&P " Ms. Neal is a very pleasant 65 year old female with past medical history of a. fib s/p cardiac ablation and nephrolithiasis as well as ureteral stone s/p stent placement presented to the ED due to right flank and groin pain for about a month and fever, chills, hematuria, dysuria, , urinary hesitation, and diarrhea that started since 10/14/2020. She said that she had right stent placed in [facility] on 09/11/2020, and that due to insurance reasons, she established care with [facility] later on. She is planned to have uretroscopy on 10/25/20, and she said the stent is planed to be removed on that day. Right flank pain is a stabbing, intermittent, 9/10 pain with alleviating factor of Tylenol or morphine; aggravating factor as laying on left side and while having bowel movement. She urinates about 3 times a day with small amount of urine, less frequent than usual. She drinks at least 0.5 gallon per day. She had a straight cath yesterday at the urology office. Denies recent ntibiotics use, sick contact, travel history. She said she had colonoscopy done in [place] years ago without concerns including diverticulosis and a negative cologuard within 3 years. She denies prolonged immobilazation after stent surgery " HOSPITAL COURSE: Patient was started on IVF and ceftriaxone since patient's previous urine cultures were sensitive to ceftriaxone. Urology evaluated patient. Since patient was clinically improving, did not recommend any intervention. Recommended continuing antibiotics and to keep scheduled surgery date. Patient's urine culture grew E.coli which is sensitive to ceftriaxone. I discharged her with a longer course of antibiotics since the stent was still in place. Patient reports that the stent was planned to be removed on 10/25/20. Ot herwise, renal function improved with IVF. Patient CT abdomen pelvis without contrast did recommend CT abdomen pelvis with contrast as there was a kidney cyst that could be a mass. Since patient's renal function was just recovering, decided to wait on imaging and defer to outpatient. This morning, she felt well. Denied any chest pain or dyspnea. She felt ready for home and was subsequently discharged home. DISCHARGE MEDICATIONS: Please see below. ALLERGIES: Please see below. PHYSICAL EXAMINATION ON DISCHARGE: VITAL SIGNS: Please see below. GENERAL: Comfortable, in no apparent distress. HEENT: Sclera clear. NECK: Supple. RESPIRATORY: Lungs clear to auscultation bilaterally, no rales, wheeze or rhonchi. CARDIOVASCULAR: Regular rate and irregular rhythm. ABDOMEN: Soft, nontender, no guarding or rebound tenderness. Normal bowel sounds. MUSCLE SKELETAL: Muscle strength 5/5 in all extremities. NEUROLOGICAL: CN 312 grossly intact. PSYCHOLOGICAL: Normal mood and affect. LABORATORY DATA: Please see below. IMAGING: Radiologist interpretation CT abdomen pelvis without contrast 1. There is a stent within the right ureter. 2. 6 mm calcified stone lower pole the right kidney and 8 mm calcified stone lower pole left kidney. 3. Hazy stranding density along the right renal pelvis and following the right ureter is probably secondary to ureteritis and pyelonephritis. No evidence of obstruction at this time. 4. Lobulation of the border of the right kidney could be a cyst. To exclude a solid mass recommend CT scan with contrast. PROGNOSIS: Good ACTIVITY: As tolerated. DIET: Carbohydrate consistent diet DISCHARGE PLAN: Home DISPOSITION: Home, Self-Care. DISCHARGE INSTRUCTIONS: 1. Follow-up with your PCP in 1 week. 2. Follow-up with urology in 1 week ITEMS TO FOLLOWUP ON ON OUTPATIENT: 1. Renal function. 2. When renal function stabilizes, consider CT abdomen pelvis with contrast for right kidney cyst to rule out solid mass DISCHARGE CONDITION: Stable. Total time spent on discharge planning, discharge summary, and medication reconciliation: 45 minutes Vital Signs/I&Os Vital Signs Date Time Temp Pulse Resp B/P (MAP) Pulse Ox O2 Delivery O2 Flow Rate FiO2 10/20/20 08:51 102 128/88 10/20/20 08:00 97.9 16 95 Room Air 10/19/20 00:00 2.0 I&O- Last 24 Hours up to 6 AM 10/20/20 05:59 Intake Total 2950 ml Output Total 3025 ml Balance -75 ml Laboratory Data Labs 24H Laboratory Tests 2 10/19/20 15:48: Anion Gap 8, Glomerular Filtration Rate 37.7L, Calcium Level 8.4L 10/19/20 17:37: Bedside Glucose (Misc Panel) 119H 10/19/20 19:50: Bedside Glucose (Misc Panel) 171H 10/20/20 05:35: Anion Gap 7L, Glomerular Filtration Rate 46.8, Calcium Level 8.4L, Nucleated Red Blood Cells % (auto) 0.0 CBC/BMP Laboratory Tests 10/19/20 15:48 10/20/20 05:35 FSBS Laboratory Tests Test 10/19/20 17:37 10/19/20 19:50 Range/Units Bedside Glucose (Misc Panel) 119 171 80-115 MG/DL Microbiology Microbiology 10/17/20 Urine Culture - Final, Complete Escherichia Coli 10/17/20 Blood Culture - Preliminary, Resulted No Growth after 48 hours. All Specime... 10/17/20 Blood Culture - Preliminary, Resulted No Growth after 48 hours. All Specime... Discharge Medications Scheduled Apixaban (Eliquis) 5 Mg Tablet, 5 MG PO BID, (Reported) Biotin (Biotin) 1 Mg Tablet, 1 MG PO DAILY, (Reported) Cefdinir (Cefdinir) 300 Mg Capsule, 300 MG PO BID Diltiazem HCl (Cartia Xt) 240 Mg Cap.er.24h, 240 MG PO DAILY, (Reported) Glucosamine/Chondr Tellez A Sod (Cidaflex Tablet) 1 Each Tablet, 1 TAB PO BID, (Reported) Hydrochlorothiazide (Hydrochlorothiazide) 12.5 Mg Tablet, 12.5 MG PO DAILY, (Reported) Metformin HCl (Metformin HCl) 1,000 Mg Tablet, 1,000 MG PO BID, (Reported) Potassium Gluconate (Potassium Gluconate) 99 Mg Tablet.er, 99 MG PO DAILY, (Reported) Saxagliptin HCl (Onglyza) 5 Mg Tablet, 5 MG PO DAILY, (Reported) Allergies Coded Allergies: amiodarone (Verified Allergy, Mild, RASH, 10/15/20) rivaroxaban (Verified Allergy, Mild, RASH, 10/15/20) JESSICA HANCOCK DO Oct 20, 2020 14:35
== END 2020-10-20 10:00 | disposition home or self-care (01) | DRG 694 ==
LOC: M ED 11:31 → M ED INP 20:41 → M PCU 23:50
PROVIDERS: ADMIT Family Medicine; ATTEND Family Medicine
DX: N20.0 Calculus of kidney (principal); N39.0 Urinary tract infection, site not specified; N17.9 Acute kidney failure, unspecified; I48.91 Unspecified atrial fibrillation; Z96.0 Presence of urogenital implants; Z20.822 Contact with and (suspected) exposure to COVID-19; Z79.84 Long term (current) use of oral hypoglycemic drugs; Z79.899 Other long term (current) drug therapy; Z88.8 Allergy status to other drugs, medicaments and biological substances; E11.9 Type 2 diabetes mellitus without complications; I10 Essential (primary) hypertension; M16.0 Bilateral primary osteoarthritis of hip; M19.012 Primary osteoarthritis, left shoulder; M19.011 Primary osteoarthritis, right shoulder; Z87.891 Personal history of nicotine dependence; K21.9 Gastro-esophageal reflux disease without esophagitis; N28.1 Cyst of kidney, acquired; B96.20 Unspecified Escherichia coli [E. coli] as the cause of diseases classified elsewhere

== ENCOUNTER → 2020-10-23 | Outpatient (REF) | payer MEDICARE ==
[~2020-10-23] MED LIST changes: +CEFD300C PO; +LASI40TA9 PO
[2020-10-23 13:00] LABS: INR 1.1; PROTHROMBIN TIME 14.6 SECONDS (12.7-14.5)
[2020-10-23 13:01] LABS: PARTIAL THROMBOPLASTIN TIME 35.4 SECONDS (25.9-37.0)
== END ==
LOC: M SFHCCLAY 10:36
PROVIDERS: ATTEND Urology
DX: Z01.818 Encounter for other preprocedural examination (principal); N20.0 Calculus of kidney

== ENCOUNTER → 2020-10-23 | Outpatient (CLI) | payer OTHER ==
[~2020-10-23] MED LIST changes: -LASI40TA9 PO
== END ==
LOC: M LABSMTC 09:15
PROVIDERS: ATTEND Anesthesiology
DX: Z01.812 Encounter for preprocedural laboratory examination (principal); Z20.822 Contact with and (suspected) exposure to COVID-19

== ENCOUNTER → 2020-10-23 | Outpatient (CLI) | payer MEDICARE ==
[~2020-10-23] MED LIST changes: +LASI40TA9 PO
== END ==
LOC: M CLY 10:45
PROVIDERS: ATTEND Urology
DX: Z01.818 Encounter for other preprocedural examination (principal); N20.0 Calculus of kidney; R91.8 Other nonspecific abnormal finding of lung field; Z20.822 Contact with and (suspected) exposure to COVID-19
CPT/HCPCS: 71046; 85610; 85730; U0003

== ENCOUNTER 2020-10-25 09:23 | Day surgery (SDC) | payer OTHER ==
[~2020-10-25] VITALS: Ht 160 cm; Wt 96.6 kg
[~2020-10-25 09:23] MED LIST changes: +CONRAY-60 60% 50ML VIAL (Q9961) As Ordered ONE; -LASI40TA9 PO; +LR 1,000 ML IV ONE; +ceFAZolin SOD 2 GM in IV 1 EA IV ONE
[2020-10-25] MEDS ORDERED: LASI40TA9 PO (09:46)
[2020-10-25] MEDS ORDERED: LIDOCAINE 2% 100MG/5ML SDV (FOR ANES.) As Ordered ONE (11:12)
[2020-10-25] MEDS ORDERED: MIDAZOLAM INJ 2MG/2ML VIAL (J2250 PER 1MG) As Ordered ONE (11:12)
[2020-10-25] MEDS ORDERED: propofoL 200 MG/20 ML VIAL As Ordered ONE (11:12)
[2020-10-25] MEDS ORDERED: fentaNYL 100 MCG/2 ML INJECTION As Ordered ONE (11:12)
[2020-10-25] MEDS ORDERED: dexameTHASONE 4 MG/ML 1ML VIAL (J1100 PER 1MG) As Ordered ONE (11:12)
[2020-10-25] MEDS ORDERED: ONDANSETRON 4MG/2ML VIAL As Ordered ONE (11:12)
[2020-10-25] MEDS ORDERED: LIDOCAINE 2% 5ML JELLY UROJET As Ordered ONE (11:54)
[2020-10-25] MEDS ORDERED: ACETAMINOPHEN 1000MG 100ML IV BTL (OFIRMEV) (J0131 PER 10MG) As Ordered ONE (12:49)
[2020-10-25 13:30] VITALS: BP 159/72
[2020-11-01 15:09] LABS: CA Oxalate Dihy 20 % (.); Ca Ox Monohydrate 80 % (.); Size 5x2 mm (.)
== END 2020-10-25 13:45 | disposition home or self-care (01) ==
LOC: M SDC 09:23
PROVIDERS: ATTEND Urology
DX: N20.0 Calculus of kidney (principal); E11.9 Type 2 diabetes mellitus without complications; I48.91 Unspecified atrial fibrillation; I10 Essential (primary) hypertension; Z79.899 Other long term (current) drug therapy; Z87.891 Personal history of nicotine dependence; Z88.8 Allergy status to other drugs, medicaments and biological substances
CPT/HCPCS: 52352; 74420; 82365; 88300; C1769; C1894; J0131; J0690; J1100; J2250; J2405; J3010; Q9961

== ENCOUNTER → 2020-10-31 | Outpatient (REF) | payer MEDICARE ==
[~2020-10-31] MED LIST changes: -CONRAY-60 60% 50ML VIAL (Q9961) As Ordered ONE; +LASI40TA9 PO; -LR 1,000 ML IV ONE; -ceFAZolin SOD 2 GM in IV 1 EA IV ONE
[2020-10-31 16:28] LABS: HEMOGLOBIN A1c 6.7 %
[2020-10-31 16:33] LABS: CREATININE, URINE 76.7 MG/DL; MALB URINE SIEMENS 61.6 MG/L; MAU/CREAT RATIO 80.3 MCG/MG (0.0-30.0)
[2020-10-31 16:37] LABS: CHOLESTEROL RISK RATIO 4.909 (<5)
== END ==
LOC: M SFHCCLAY 09:45
PROVIDERS: ATTEND Family Medicine
DX: E11.9 Type 2 diabetes mellitus without complications (principal)

== ENCOUNTER → 2020-11-08 | Outpatient (CLI) | payer MEDICARE, OTHER ==
[~2020-11-08] MED LIST changes: +ISOVUE-370 76% 100ML VIAL As Ordered ONE
--- NOTE | 2020-11-10 04:57 | REP ---
INDICATION: CYST OF KIDNEY. COMPARISON: 10/17/2020 TECHNIQUE: Axial contrast-enhanced images from the lung bases to the pubic symphysis using 100 cc Isovue 370 intravenous contrast material. Precontrast, arterial phase, and delayed phased images of the abdomen obtained as well as coronal and sagittal reformations. This CT examination was performed using the following dose reduction techniques: Automated exposure control, adjustment of mA and/or kv according to the patient's size, and the use of iterative reconstruction technique. FINDINGS: Right kidney demonstrates congenital lobulations along with areas of cortical scarring/thinning as well as 1 cm simple cyst. There is no perinephric stranding, hydroureteronephrosis, nephroureterolithiasis or obvious right renal mass lesion. Left kidney demonstrates congenital lobulations along with areas of cortical scarring/thinning as well as 8 mm nonobstructing lower pole calculus and 2 subcentimeter simple appearing cysts. There is no perinephric stranding, hydroureteronephrosis, nephroureterolithiasis or obvious left renal mass lesion. Liver, spleen, pancreas, and right adrenal gland are essentially normal. Left adrenal gland suggests small 1 cm benign adenoma versus focal hyperplastic change. The enteric system including stomach, small, and large bowel appears normal. No evidence for obstruction or acute inflammatory process. Normal terminal ileum and appendix are identified in the right lower quadrant. Scattered colonic/sigmoid diverticula noted without acute diverticulitis. Pelvis demonstrates normal bladder and prior hysterectomy. No ascites. No free air. No intraperitoneal or retroperitoneal adenopathy. Abdominal aorta and vasculature demonstrate atherosclerotic changes without aneurysm or dissection. Musculoskeletal structures are intact and without acute osseous abnormality. IMPRESSION: 1. Renal changes as described above including small simple bilateral cysts and 8 mm nonobstructing left renal calculus. 2. Nonacute findings as described above. <Electronically signed by Ed Eason > 11/10/20 [id number]
== END ==
LOC: M RAD 11:39
PROVIDERS: ATTEND Family Medicine
DX: N28.1 Cyst of kidney, acquired (principal); N20.0 Calculus of kidney
CPT/HCPCS: 74178; Q9967

== ENCOUNTER → 2021-02-03 | Outpatient (REF) | payer MEDICARE ==
[~2021-02-03] MED LIST changes: -ISOVUE-370 76% 100ML VIAL As Ordered ONE
[2021-02-03 12:18] LABS: INR 1.27; PROTHROMBIN TIME 16.3 SECONDS (12.7-14.5)
== END ==
LOC: M SFHCCLAY 09:40
PROVIDERS: ATTEND Family Medicine
DX: I48.91 Unspecified atrial fibrillation (principal); Z51.81 Encounter for therapeutic drug level monitoring; Z79.01 Long term (current) use of anticoagulants

== ENCOUNTER → 2021-02-10 | Outpatient (REF) | payer MEDICARE ==
[2021-02-10 12:10] LABS: INR 1.72; PROTHROMBIN TIME 20.5 SECONDS (12.7-14.5)
== END ==
LOC: M SFHCCLAY 08:52
PROVIDERS: ATTEND Family Medicine
DX: I48.91 Unspecified atrial fibrillation (principal); Z79.01 Long term (current) use of anticoagulants; Z51.81 Encounter for therapeutic drug level monitoring

== ENCOUNTER → 2021-02-17 | Outpatient (REF) | payer MEDICARE ==
[2021-02-17 11:48] LABS: INR 1.83; PROTHROMBIN TIME 21.6 SECONDS (12.7-14.5)
[2021-02-17 12:01] LABS: HEMOGLOBIN A1c 6.4 %
[2021-02-17 12:05] LABS: BLOOD UREA NITROGEN 27 MG/DL (7-18); CALCIUM LEVEL 9.1 MG/DL (8.8-10.2); CARBON DIOXIDE LEVEL 31 MEQ/L (21-32); CHLORIDE LEVEL 108 MEQ/L (98-107); CREATININE FOR GFR 0.81 MG/DL (0.55-1.30); GLOMERULAR FILTRATION RATE > 60.0 (>45); GLUCOSE, FASTING 104 MG/DL (70-100); POTASSIUM SERUM 4.5 MEQ/L (3.5-5.1); SODIUM LEVEL 143 MEQ/L (136-145)
== END ==
LOC: M SFHCCLAY 09:17
PROVIDERS: ATTEND Family Medicine
DX: I11.9 Hypertensive heart disease without heart failure (principal); E11.9 Type 2 diabetes mellitus without complications; I48.91 Unspecified atrial fibrillation; Z51.81 Encounter for therapeutic drug level monitoring; Z79.01 Long term (current) use of anticoagulants

== ENCOUNTER → 2021-02-27 | Outpatient (REF) | payer MEDICARE ==
[2021-02-27 15:54] LABS: INR 1.52; PROTHROMBIN TIME 18.7 SECONDS (12.7-14.5)
== END ==
LOC: M SFHCCLAY 10:19
PROVIDERS: ATTEND Family Medicine
DX: I48.91 Unspecified atrial fibrillation (principal); Z51.81 Encounter for therapeutic drug level monitoring; Z79.01 Long term (current) use of anticoagulants

== ENCOUNTER → 2021-08-28 | Outpatient (REF) | payer MEDICARE ==
[2021-08-28 12:09] LABS: HEMOGLOBIN A1c 6.4 %
[2021-08-28 12:12] LABS: BLOOD UREA NITROGEN 21 MG/DL (7-18); CALCIUM LEVEL 9.6 MG/DL (8.8-10.2); CARBON DIOXIDE LEVEL 32 MEQ/L (21-32); CHLORIDE LEVEL 104 MEQ/L (98-107); CHOLESTEROL LEVEL 205 MG/DL (<200); CHOLESTEROL RISK RATIO 4.555 (<5); GLOMERULAR FILTRATION RATE > 60.0 (>45); GLUCOSE, FASTING 88 MG/DL (70-100); HDL CHOLESTEROL 45 MG/DL (>40); LDL CHOLESTEROL 134 MG/DL (<100); NON-HDL-C 160 MG/DL; POTASSIUM SERUM 4.4 MEQ/L (3.5-5.1); SODIUM LEVEL 139 MEQ/L (136-145); TRIGLYCERIDES LEVEL 129 MG/DL (<150)
[2021-08-28 12:34] LABS: CREATININE, URINE 82.8 MG/DL; MALB URINE SIEMENS 19.7 MG/L; MAU/CREAT RATIO 23.7 MCG/MG (0.0-30.0)
== END ==
LOC: M SFHCCLAY 08:48
PROVIDERS: ATTEND Family Medicine
DX: E11.9 Type 2 diabetes mellitus without complications (principal); I11.9 Hypertensive heart disease without heart failure

== ENCOUNTER → 2021-12-22 | Outpatient (CLI) | payer MEDICARE | LOC: M RAD 12:47 | PROVIDERS: ATTEND Physician Assistant Surgical | DX: M16.12 Unilateral primary osteoarthritis, left hip (principal); M70.62 Trochanteric bursitis, left hip; S73.192A Other sprain of left hip, initial encounter; X58.XXXA Exposure to other specified factors, initial encounter; Y92.9 Unspecified place or not applicable; Y93.9 Activity, unspecified; Y99.9 Unspecified external cause status ==

== ENCOUNTER → 2022-02-25 | Outpatient (REF) | payer MEDICARE ==
[2022-02-25 18:44] LABS: BLOOD UREA NITROGEN 17 MG/DL (9-23); CARBON DIOXIDE LEVEL 31 MMOL/L (20-31); CHLORIDE LEVEL 102 MMOL/L (98-107); CREATININE FOR GFR 0.88 MG/DL (0.55-1.30); GLOMERULAR FILTRATION RATE > 60.0 (>45); GLUCOSE, FASTING 84 MG/DL (74-106); POTASSIUM SERUM 4.1 MMOL/L (3.5-5.1); SODIUM LEVEL 141 MMOL/L (136-145)
[2022-02-25 19:46] LABS: HEMOGLOBIN A1c 5.7 % (4.0-6.0)
== END ==
LOC: M SFHCCLAY 10:38
PROVIDERS: ATTEND Nurse Practitioner Family
DX: E11.9 Type 2 diabetes mellitus without complications (principal); I11.9 Hypertensive heart disease without heart failure

== ENCOUNTER → 2022-03-20 | Outpatient (CLI) | payer OTHER ==
[~2022-03-20] MED LIST changes: +ISOVUE-300 61% 100ML VIAL ONE; +LIDOCAINE 1% MDV 20ML VIAL ONE; +methylPREDNISolone SUSP 40MG/ML 1ML VIAL (DEPO MEDROL) ONE
== END ==
LOC: M PLAIMG 14:49
PROVIDERS: ATTEND Physician Assistant Surgical
DX: M16.12 Unilateral primary osteoarthritis, left hip (principal)
CPT/HCPCS: 76000; Q9967

== ENCOUNTER → 2022-05-25 | Outpatient (CLI) | payer OTHER ==
[~2022-05-25] MED LIST changes: +ISOVUE-300 61% 100ML VIAL As Ordered ONE; -ISOVUE-300 61% 100ML VIAL ONE; +LIDOCAINE 1% MDV 20ML VIAL As Ordered ONE; -LIDOCAINE 1% MDV 20ML VIAL ONE; +methylPREDNISolone SUSP 40MG/ML 1ML VIAL (DEPO MEDROL) As Ordered ONE; -methylPREDNISolone SUSP 40MG/ML 1ML VIAL (DEPO MEDROL) ONE
== END ==
LOC: M RAD 15:25
PROVIDERS: ATTEND Physician Assistant Surgical
DX: M70.62 Trochanteric bursitis, left hip (principal); M16.12 Unilateral primary osteoarthritis, left hip; M24.152 Other articular cartilage disorders, left hip
CPT/HCPCS: 20610; 77002; J1030; Q9967

== ENCOUNTER → 2022-05-29 | Outpatient (REF) | payer MEDICARE ==
[~2022-05-29] MED LIST changes: -ISOVUE-300 61% 100ML VIAL As Ordered ONE; -LIDOCAINE 1% MDV 20ML VIAL As Ordered ONE; -methylPREDNISolone SUSP 40MG/ML 1ML VIAL (DEPO MEDROL) As Ordered ONE
[2022-05-29 17:19] LABS: HEMATOCRIT 45.4 % (36.0-47.0); HEMOGLOBIN 13.7 g/dl (12.0-15.5); MEAN CORPUSCULAR HEMOGLOBIN 24.2 pg (27.0-33.0); MEAN CORPUSCULAR HGB CONC 30.2 g/dl (32.0-36.5); MEAN CORPUSCULAR VOLUME 80.1 fl (80.0-96.0); PLATELET COUNT, AUTOMATED 234 10^3/uL (150-450); RED BLOOD COUNT 5.67 10^6/uL (4.00-5.40); WHITE BLOOD COUNT 8.4 10^3/uL (4.0-10.0)
[2022-05-29 17:33] LABS: CREATININE, URINE 72.3 MG/DL; MAU/CREAT RATIO 20.7 MCG/MG (0.0-30.0)
[2022-05-29 17:38] LABS: ALBUMIN 3.3 G/DL (3.2-5.2); ALKALINE PHOSPHATASE 58 U/L (46-116); ALT/SGPT 11 U/L (7.0-40); AST/SGOT 14 U/L (<34); BILIRUBIN,TOTAL 0.4 MG/DL (0.3-1.2); BLOOD UREA NITROGEN 22 MG/DL (9-23); CALCIUM LEVEL 8.6 MG/DL (8.3-10.6); CARBON DIOXIDE LEVEL 29 MMOL/L (20-31); CHLORIDE LEVEL 101 MMOL/L (98-107); CHOLESTEROL LEVEL 186 MG/DL (<200); CHOLESTEROL RISK RATIO 4.76 (<5); CREATININE FOR GFR 0.87 MG/DL (0.55-1.30); GLOMERULAR FILTRATION RATE > 60.0 (>45); GLUCOSE, FASTING 86 MG/DL (74-106); POTASSIUM SERUM 4.1 MMOL/L (3.5-5.1); SODIUM LEVEL 136 MMOL/L (136-145); TRIGLYCERIDES LEVEL 130 MG/DL (<150)
[2022-05-29 17:39] LABS: FREE T4 1.25 NG/DL (0.89-1.76); THYROID STIMULATING HORMONE 1.234 uIU/ML (0.55-4.78)
== END ==
LOC: M SFHCCLAY 11:52
PROVIDERS: ATTEND Nurse Practitioner Family
DX: E11.9 Type 2 diabetes mellitus without complications (principal); I48.91 Unspecified atrial fibrillation; I10 Essential (primary) hypertension

== ENCOUNTER → 2022-06-02 | Outpatient (REF) | payer MEDICARE | LOC: M SFHCCLAY 11:14 | PROVIDERS: ATTEND Nurse Practitioner Family | DX: N30.00 Acute cystitis without hematuria (principal) ==

== ENCOUNTER → 2022-08-11 | Outpatient (CLI) | payer OTHER | LOC: M RAD 10:59 | PROVIDERS: ATTEND Physician Assistant Surgical | DX: M47.896 Other spondylosis, lumbar region (principal) ==

== ENCOUNTER → 2022-08-31 | Outpatient (REF) | payer OTHER, MEDICARE ==
[2022-08-31 13:08] LABS: PLATELET COUNT, AUTOMATED 270 10^3/uL (150-450)
[2022-08-31 13:22] LABS: INR 2.36; PROTHROMBIN TIME 26.2 SECONDS (12.5-14.5)
== END ==
LOC: M LABDRAWC 11:28
PROVIDERS: ATTEND Physician Assistant Surgical
DX: Z01.818 Encounter for other preprocedural examination (principal)

== ENCOUNTER → 2022-09-21 | Outpatient (CLI) | payer MEDICARE, OTHER ==
[2022-09-21 09:42] LABS: INR 1.04; PROTHROMBIN TIME 13.8 SECONDS (12.5-14.5)
[2022-09-21 09:43] LABS: PARTIAL THROMBOPLASTIN TIME 27.7 SECONDS (24.8-34.2)
== END ==
LOC: M LAB 08:22
PROVIDERS: ATTEND Physical Medicine & Rehabilitation
DX: Z01.812 Encounter for preprocedural laboratory examination (principal); Z79.01 Long term (current) use of anticoagulants

== ENCOUNTER 2022-10-08 15:29 | Emergency (ER) | payer MEDICARE, OTHER ==
[~2022-10-08] VITALS: Ht 162.6 cm; Wt 95.5 kg
[2022-10-08] MEDS ORDERED: methocarbamoL 500 MG TAB PO ONE ×2 (18:40→20:45)
[2022-10-08] MEDS ORDERED: predniSONE 20 MG TAB PO ONE (18:40)
[2022-10-08] MEDS ORDERED: METH-1164 PO (20:40)
[2022-10-08] MEDS ORDERED: PRED20TA PO (20:40)
[2022-10-08 20:56] VITALS: BP 132/72; TEMP 97.5; O2SAT 94
== END 2022-10-08 20:59 | disposition home or self-care (01) ==
LOC: M ED 15:29
DX: M54.30 Sciatica, unspecified side (principal); Y92.531 Health care provider office as the place of occurrence of the external cause; N20.0 Calculus of kidney; E11.9 Type 2 diabetes mellitus without complications; I10 Essential (primary) hypertension; I48.91 Unspecified atrial fibrillation; K21.9 Gastro-esophageal reflux disease without esophagitis; M17.12 Unilateral primary osteoarthritis, left knee; Z79.01 Long term (current) use of anticoagulants; Z79.84 Long term (current) use of oral hypoglycemic drugs; Z79.899 Other long term (current) drug therapy; Z88.8 Allergy status to other drugs, medicaments and biological substances
CPT/HCPCS: 72110; 73502; 73564; 99283; J7512

== ENCOUNTER → 2022-10-15 | Outpatient (CLI) | payer OTHER ==
[~2022-10-15] MED LIST changes: +METH-1164 PO; +PRED20TA PO
== END ==
LOC: M RAD 11:11
PROVIDERS: ATTEND Physician Assistant Surgical
DX: M16.12 Unilateral primary osteoarthritis, left hip (principal); K57.30 Diverticulosis of large intestine without perforation or abscess without bleeding; M94.252 Chondromalacia, left hip

== ENCOUNTER → 2022-11-11 | Outpatient (REF) | payer MEDICARE ==
[2022-11-11 18:22] LABS: BASO % 0.2 % (0.0-1.0); EOS # 0.2 10^3/uL (0.0-0.5); EOS % 1.8 % (0.0-3.0); HEMATOCRIT 40.6 % (36.0-47.0); HEMOGLOBIN 12.4 g/dl (12.0-15.5); LYMPH % 23.8 % (24.0-44.0); MEAN CORPUSCULAR HEMOGLOBIN 24.6 pg (27.0-33.0); MEAN CORPUSCULAR HGB CONC 30.5 g/dl (32.0-36.5); MEAN CORPUSCULAR VOLUME 80.6 fl (80.0-96.0); MONO # 0.8 10^3/uL (0.0-0.8); NEUTROPHILS # 5.5 10^3/uL (1.5-8.5); NEUTROPHILS % 64.8 % (36.0-66.0); PLATELET COUNT, AUTOMATED 351 10^3/uL (150-450); RED BLOOD COUNT 5.04 10^6/uL (4.00-5.40); WHITE BLOOD COUNT 8.4 10^3/uL (4.0-10.0)
[2022-11-11 18:32] LABS: HEMOGLOBIN A1c 5.7 % (4.0-6.0)
[2022-11-11 18:49] LABS: ALBUMIN 2.9 G/DL (3.2-5.2); ALKALINE PHOSPHATASE 63 U/L (46-116); ALT/SGPT 18 U/L (7.0-40); AST/SGOT 16 U/L (<34); BILIRUBIN,TOTAL 0.4 MG/DL (0.3-1.2); BLOOD UREA NITROGEN 20 MG/DL (9-23); CALCIUM LEVEL 9.1 MG/DL (8.3-10.6); CARBON DIOXIDE LEVEL 31 MMOL/L (20-31); CHLORIDE LEVEL 99 MMOL/L (98-107); CHOLESTEROL LEVEL 165 MG/DL (<200); CHOLESTEROL RISK RATIO 5.33 (<5); CREATININE FOR GFR 0.85 MG/DL (0.55-1.30); GLOMERULAR FILTRATION RATE > 60.0 (>45); GLUCOSE, FASTING 82 MG/DL (74-106); HDL CHOLESTEROL 30.9 MG/DL (>40); LDL CHOLESTEROL 93.3 MG/DL (<100); MAGNESIUM LEVEL 1.2 MG/DL (1.8-2.4); NON-HDL-C 134.1 MG/DL; POTASSIUM SERUM 3.5 MMOL/L (3.5-5.1); SODIUM LEVEL 140 MMOL/L (136-145); TOTAL PROTEIN 7.1 G/DL (5.7-8.2); TRIGLYCERIDES LEVEL 204 MG/DL (<150)
== END ==
LOC: M SFHCCLAY 14:12
PROVIDERS: ATTEND Nurse Practitioner Family
DX: E11.9 Type 2 diabetes mellitus without complications (principal); I48.91 Unspecified atrial fibrillation; I10 Essential (primary) hypertension; Z79.01 Long term (current) use of anticoagulants; R19.7 Diarrhea, unspecified; U07.1 COVID-19

== ENCOUNTER → 2022-11-13 | Outpatient (CLI) | payer MEDICARE ==
[~2022-11-13] MED LIST changes: +ISOVUE-300 61% 100ML VIAL As Ordered ONE; +LIDOCAINE 1% MDV 20ML VIAL As Ordered ONE; +methylPREDNISolone SUSP 40MG/ML 1ML VIAL (DEPO MEDROL) As Ordered ONE
== END ==
LOC: M RAD 14:24
PROVIDERS: ATTEND Physician Assistant Surgical
DX: M16.12 Unilateral primary osteoarthritis, left hip (principal)
CPT/HCPCS: 20610; 77002; J1030; Q9967

== ENCOUNTER → 2023-01-06 | Outpatient (REF) | payer MEDICARE ==
[~2023-01-06] MED LIST changes: -ISOVUE-300 61% 100ML VIAL As Ordered ONE; -LIDOCAINE 1% MDV 20ML VIAL As Ordered ONE; -OXYB5TAB10; +OXYB5TAB11; -methylPREDNISolone SUSP 40MG/ML 1ML VIAL (DEPO MEDROL) As Ordered ONE
== END ==
LOC: M SFHCCLAY 13:51
PROVIDERS: ATTEND Nurse Practitioner Family
DX: E83.42 Hypomagnesemia (principal)

== ENCOUNTER 2023-04-01 16:17 | Emergency (ER) | payer MEDICARE ==
[~2023-04-01] VITALS: Ht 162.6 cm; Wt 92.3 kg
[~2023-04-01 16:17] MED LIST changes: -OXYB5TAB11; +OXYB5TAB14
[2023-04-01 17:10] LABS: BASO % 0.2 % (0.0-1.0); EOS # 0.2 10^3/uL (0.0-0.5); EOS % 1.9 % (0.0-3.0); HEMATOCRIT 43.7 % (36.0-47.0); HEMOGLOBIN 13.5 g/dl (12.0-15.5); LYMPH # 2.2 10^3/uL (1.5-5.0); LYMPH % 24.1 % (24.0-44.0); MEAN CORPUSCULAR HEMOGLOBIN 24.8 pg (27.0-33.0); MEAN CORPUSCULAR HGB CONC 30.9 g/dl (32.0-36.5); MEAN CORPUSCULAR VOLUME 80.3 fl (80.0-96.0); MONO # 0.9 10^3/uL (0.0-0.8); MONO % 9.4 % (2.0-8.0); NEUTROPHILS # 5.8 10^3/uL (1.5-8.5); NEUTROPHILS % 64.2 % (36.0-66.0); PLATELET COUNT, AUTOMATED 270 10^3/uL (150-450); RED BLOOD COUNT 5.44 10^6/uL (4.00-5.40); WHITE BLOOD COUNT 9.1 10^3/uL (4.0-10.0)
[2023-04-01 17:30] LABS: LIPASE 68 U/L (12-53)
[2023-04-01 17:32] LABS: ALBUMIN 3.6 G/DL (3.2-5.2); ALKALINE PHOSPHATASE 54 U/L (46-116); ALT/SGPT 21 U/L (7.0-40); AST/SGOT 27 U/L (<34); BILIRUBIN,DIRECT < 0.1 MG/DL (<0.4); BILIRUBIN,TOTAL 0.4 MG/DL (0.3-1.2); TOTAL PROTEIN 7.3 G/DL (5.7-8.2)
[2023-04-01] MEDS: ACETAMINOPHEN *IV* 1,000 MG in IV 1 EA IV ONE (19:50)
[2023-04-01] MEDS ORDERED: METH-1164 PO (21:09)
[2023-04-01 21:19] VITALS: BP 138/71; TEMP 97.1; O2SAT 97
[2023-04-01] MEDS: methocarbamoL 500 MG TAB PO ONE (21:19)
== END 2023-04-01 21:32 | disposition home or self-care (01) ==
LOC: M ED 16:17
DX: M51.36 Other intervertebral disc degeneration, lumbar region (principal); N20.0 Calculus of kidney; I71.40 Abdominal aortic aneurysm, without rupture, unspecified; M54.50 Low back pain, unspecified; E11.9 Type 2 diabetes mellitus without complications; I10 Essential (primary) hypertension; K21.9 Gastro-esophageal reflux disease without esophagitis; Z87.442 Personal history of urinary calculi; Z86.79 Personal history of other diseases of the circulatory system; Z88.8 Allergy status to other drugs, medicaments and biological substances; Z79.01 Long term (current) use of anticoagulants; Z79.4 Long term (current) use of insulin; Z79.52 Long term (current) use of systemic steroids; Z79.899 Other long term (current) drug therapy
CPT/HCPCS: 72131; 74176; 80047; 80076; 81001; 83690; 85025; 96365; 99284; G0463; J0131

== ENCOUNTER → 2023-04-13 | Outpatient (REF) | payer MEDICARE ==
[2023-04-13 12:50] LABS: HEMATOCRIT 43.2 % (36.0-47.0); MEAN CORPUSCULAR HEMOGLOBIN 24.4 pg (27.0-33.0); MEAN CORPUSCULAR HGB CONC 30.1 g/dl (32.0-36.5); MEAN CORPUSCULAR VOLUME 81.2 fl (80.0-96.0); PLATELET COUNT, AUTOMATED 269 10^3/uL (150-450); RED BLOOD COUNT 5.32 10^6/uL (4.00-5.40)
[2023-04-13 13:10] LABS: INR 1.72; PROTHROMBIN TIME 19.6 SECONDS (12.5-14.5)
[2023-04-13 13:11] LABS: ERYTHROCYTE SEDIMENTATION RATE 42 mm/hr (0-30)
[2023-04-13 13:14] LABS: ALBUMIN 3.3 G/DL (3.2-5.2); ALKALINE PHOSPHATASE 52 U/L (46-116); ALT/SGPT 20 U/L (7.0-40); AST/SGOT 13 U/L (<34); BILIRUBIN,TOTAL 0.4 MG/DL (0.3-1.2); BLOOD UREA NITROGEN 20 MG/DL (9-23); CALCIUM LEVEL 9.5 MG/DL (8.3-10.6); CARBON DIOXIDE LEVEL 32 MMOL/L (20-31); CHLORIDE LEVEL 106 MMOL/L (98-107); CREATININE FOR GFR 0.73 MG/DL (0.55-1.30); GLOMERULAR FILTRATION RATE > 60.0 (>39); GLUCOSE, FASTING 107 MG/DL (74-106); POTASSIUM SERUM 5.1 MMOL/L (3.5-5.1); SODIUM LEVEL 142 MMOL/L (136-145); TOTAL PROTEIN 6.7 G/DL (5.7-8.2)
== END ==
LOC: M LABDRAWC 11:22
PROVIDERS: ATTEND Orthopaedic Surgery
DX: Z01.818 Encounter for other preprocedural examination (principal); M87.852 Other osteonecrosis, left femur; Z79.01 Long term (current) use of anticoagulants

== ENCOUNTER → 2023-04-15 | Outpatient (CLI) | payer MEDICARE | LOC: M CLY 09:12 | PROVIDERS: ATTEND Orthopaedic Surgery | DX: Z01.818 Encounter for other preprocedural examination (principal); J98.11 Atelectasis ==

== ENCOUNTER → 2023-04-15 | Outpatient (REF) | payer MEDICARE | LOC: M SFHCCLAY 10:04 | PROVIDERS: ATTEND Nurse Practitioner Family | DX: Z53.9 Procedure and treatment not carried out, unspecified reason (principal) ==

== ENCOUNTER → 2023-05-03 | Outpatient (CLI) | payer MEDICARE | LOC: M CLY 10:43 | PROVIDERS: ATTEND Nurse Practitioner Family | DX: Z01.818 Encounter for other preprocedural examination (principal); E83.42 Hypomagnesemia; I10 Essential (primary) hypertension; I48.91 Unspecified atrial fibrillation; E11.9 Type 2 diabetes mellitus without complications; Z79.01 Long term (current) use of anticoagulants ==

== ENCOUNTER → 2023-05-03 | Outpatient (REF) | payer MEDICARE ==
[2023-05-03 17:35] LABS: BASO % 0.5 % (0.0-1.0); EOS # 0.2 10^3/uL (0.0-0.5); EOS % 2.1 % (0.0-3.0); HEMATOCRIT 44.6 % (36.0-47.0); HEMOGLOBIN 13.6 g/dl (12.0-15.5); LYMPH # 1.6 10^3/uL (1.5-5.0); LYMPH % 19.4 % (24.0-44.0); MEAN CORPUSCULAR HEMOGLOBIN 24.9 pg (27.0-33.0); MEAN CORPUSCULAR HGB CONC 30.5 g/dl (32.0-36.5); MEAN CORPUSCULAR VOLUME 81.7 fl (80.0-96.0); MONO # 0.8 10^3/uL (0.0-0.8); MONO % 9.4 % (2.0-8.0); NEUTROPHILS # 5.5 10^3/uL (1.5-8.5); NEUTROPHILS % 68.2 % (36.0-66.0); PLATELET COUNT, AUTOMATED 274 10^3/uL (150-450); RED BLOOD COUNT 5.46 10^6/uL (4.00-5.40)
[2023-05-03 18:00] LABS: HEMOGLOBIN A1c 5.8 % (4.0-6.0)
[2023-05-03 18:03] LABS: ALBUMIN 3.6 G/DL (3.2-5.2); ALKALINE PHOSPHATASE 55 U/L (46-116); ALT/SGPT 18 U/L (7.0-40); AST/SGOT 13 U/L (<34); BILIRUBIN,TOTAL 0.5 MG/DL (0.3-1.2); BLOOD UREA NITROGEN 24 MG/DL (9-23); CALCIUM LEVEL 9.4 MG/DL (8.3-10.6); CARBON DIOXIDE LEVEL 30 MMOL/L (20-31); CHLORIDE LEVEL 108 MMOL/L (98-107); CHOLESTEROL LEVEL 223 MG/DL (<200); CHOLESTEROL RISK RATIO 4.83 (<5); CREATININE FOR GFR 0.74 MG/DL (0.55-1.30); GLOMERULAR FILTRATION RATE > 60.0 (>39); GLUCOSE, FASTING 109 MG/DL (74-106); HDL CHOLESTEROL 46.1 MG/DL (>40); LDL CHOLESTEROL 138.9 MG/DL (<100); MAGNESIUM LEVEL 1.9 MG/DL (1.8-2.4); NON-HDL-C 176.9 MG/DL; POTASSIUM SERUM 4.5 MMOL/L (3.5-5.1); SODIUM LEVEL 139 MMOL/L (136-145); TOTAL PROTEIN 7.1 G/DL (5.7-8.2); TRIGLYCERIDES LEVEL 190 MG/DL (<150)
== END ==
LOC: M SFHCCLAY 10:38
PROVIDERS: ATTEND Nurse Practitioner Family
DX: Z01.818 Encounter for other preprocedural examination (principal); E83.42 Hypomagnesemia; I10 Essential (primary) hypertension; I48.91 Unspecified atrial fibrillation; Z79.01 Long term (current) use of anticoagulants; E11.9 Type 2 diabetes mellitus without complications

== ENCOUNTER → 2023-11-12 | Outpatient (CLI) | payer OTHER ==
[~2023-11-12] MED LIST changes: +ACIDCAP; -ACIDCAP9
== END ==
LOC: M PLAIMG 12:04
PROVIDERS: ATTEND Nurse Practitioner Family
DX: Z87.442 Personal history of urinary calculi (principal)

== ENCOUNTER → 2023-11-12 | Outpatient (REF) | payer OTHER ==
[2023-11-12 18:07] LABS: HEMOGLOBIN A1c 6.8 % (4.0-6.0)
[2023-11-12 18:10] LABS: ALBUMIN 3.4 G/DL (3.2-5.2); ALKALINE PHOSPHATASE 67 U/L (46-116); ALT/SGPT 16 U/L (7.0-40); AST/SGOT 10 U/L (<34); BILIRUBIN,TOTAL 0.6 MG/DL (0.3-1.2); BLOOD UREA NITROGEN 26 MG/DL (9-23); CARBON DIOXIDE LEVEL 31 MMOL/L (20-31); CHLORIDE LEVEL 104 MMOL/L (98-107); CHOLESTEROL LEVEL 221 MG/DL (<200); CHOLESTEROL RISK RATIO 6.05 (<5); CREATININE FOR GFR 0.89 MG/DL (0.55-1.30); GLOMERULAR FILTRATION RATE > 60.0 (>39); GLUCOSE, FASTING 111 MG/DL (74-106); HDL CHOLESTEROL 36.5 MG/DL (>40); LDL CHOLESTEROL 146.5 MG/DL (<100); MAGNESIUM LEVEL 2.2 MG/DL (1.8-2.4); NON-HDL-C 184.5 MG/DL; POTASSIUM SERUM 5.1 MMOL/L (3.5-5.1); SODIUM LEVEL 139 MMOL/L (136-145); TOTAL PROTEIN 7.5 G/DL (5.7-8.2); TRIGLYCERIDES LEVEL 190 MG/DL (<150)
== END ==
LOC: M SFHCCLAY 09:48
PROVIDERS: ATTEND Nurse Practitioner Family
DX: I48.91 Unspecified atrial fibrillation (principal); E11.9 Type 2 diabetes mellitus without complications; E83.42 Hypomagnesemia; I10 Essential (primary) hypertension

== ENCOUNTER → 2023-11-12 | Outpatient (REF) | payer OTHER ==
[2023-11-12 17:33] LABS: HEMATOCRIT 46.8 % (36.0-47.0); HEMOGLOBIN 13.8 g/dl (12.0-15.5); MEAN CORPUSCULAR HEMOGLOBIN 22.7 pg (27.0-33.0); MEAN CORPUSCULAR HGB CONC 29.5 g/dl (32.0-36.5); MEAN CORPUSCULAR VOLUME 76.8 fl (80.0-96.0); PLATELET COUNT, AUTOMATED 262 10^3/uL (150-450); RED BLOOD COUNT 6.09 10^6/uL (4.00-5.40); WHITE BLOOD COUNT 7.1 10^3/uL (4.0-10.0)
[2023-11-12 18:09] LABS: BLOOD UREA NITROGEN 26 MG/DL (9-23); CALCIUM LEVEL 9.9 MG/DL (8.3-10.6); CARBON DIOXIDE LEVEL 32 MMOL/L (20-31); CHLORIDE LEVEL 104 MMOL/L (98-107); GLOMERULAR FILTRATION RATE > 60.0 (>39); GLUCOSE, FASTING 114 MG/DL (74-106); POTASSIUM SERUM 5.1 MMOL/L (3.5-5.1); SODIUM LEVEL 139 MMOL/L (136-145)
== END ==
LOC: M LABDRAWC 16:39
PROVIDERS: ATTEND Nurse Practitioner Family
DX: R06.02 Shortness of breath (principal)

== ENCOUNTER → 2023-12-10 | Outpatient (REF) | payer OTHER ==
[2023-12-10 17:50] LABS: APPEARANCE, URINE CLOUDY (CLEAR); BACTERIA, URINE AUTO 2+ (NEGATIVE); BILIRUBIN, URINE AUTO NEGATIVE (NEGATIVE); BLOOD, URINE BLOOD 2+ (NEGATIVE); COLOR, URINE YELLOW (YELLOW); GLUCOSE, URINE (UA) AUTO 3+ mg/dL (NEGATIVE); KETONE, URINE AUTO NEGATIVE (NEGATIVE); LEUKOCYTE ESTERASE, URINE AUTO 3+ (NEGATIVE); NITRITE, URINE AUTO POSITIVE (NEGATIVE); PROTEIN, URINE AUTO NEGATIVE (NEGATIVE); RBC, URINE AUTO 21 /HPF (0-3); SPECIFIC GRAVITY URINE AUTO 1.015 (1.002-1.035); SQUAMOUS EPITHELIAL CELL UR AU 4 /HPF (0-6); UROBILINOGEN, URINE AUTO 0.2 mg/dL (0.0-2.0); WBC, URINE AUTO TNTC /HPF (0-3)
== END ==
LOC: M SMT 16:49
PROVIDERS: ATTEND Nurse Practitioner Family
DX: N39.46 Mixed incontinence (principal)

== ENCOUNTER → 2024-01-27 | Outpatient (CLI) | payer OTHER | LOC: M CLY 13:01 | PROVIDERS: ATTEND Nurse Practitioner Adult Health | DX: J18.9 Pneumonia, unspecified organism (principal); J17 Pneumonia in diseases classified elsewhere; Z53.9 Procedure and treatment not carried out, unspecified reason ==

== ENCOUNTER → 2024-02-08 | Outpatient (CLI) | payer OTHER | LOC: M CLY 15:34 | PROVIDERS: ATTEND Nurse Practitioner Family | DX: J18.9 Pneumonia, unspecified organism (principal); R91.8 Other nonspecific abnormal finding of lung field ==

== ENCOUNTER → 2024-03-27 | Outpatient (REF) | payer MEDICARE, OTHER ==
[2024-03-27 17:27] LABS: ALBUMIN 3.4 G/DL (3.2-5.2); ALKALINE PHOSPHATASE 57 U/L (35-104); ALT/SGPT 16 U/L (7.0-40); AST/SGOT 15 U/L (<34); BILIRUBIN,TOTAL 0.4 MG/DL (0.3-1.2); BLOOD UREA NITROGEN 36 MG/DL (9-23); CALCIUM LEVEL 9.5 MG/DL (8.3-10.6); CARBON DIOXIDE LEVEL 29 MMOL/L (20-31); CHLORIDE LEVEL 105 MMOL/L (98-107); CHOLESTEROL LEVEL 208 MG/DL (<200); CHOLESTEROL RISK RATIO 5.01 (<5); CREATININE FOR GFR 0.96 MG/DL (0.55-1.30); GLOMERULAR FILTRATION RATE > 60.0 (>39); GLUCOSE, FASTING 142 MG/DL (74-106); HDL CHOLESTEROL 41.5 MG/DL (>40); LDL CHOLESTEROL 127.9 MG/DL (<100); MAGNESIUM LEVEL 1.9 MG/DL (1.8-2.4); NON-HDL-C 166.5 MG/DL; POTASSIUM SERUM 5.1 MMOL/L (3.5-5.1); SODIUM LEVEL 141 MMOL/L (136-145); TOTAL PROTEIN 7.7 G/DL (5.7-8.2); TRIGLYCERIDES LEVEL 193 MG/DL (<150)
[2024-03-27 17:44] LABS: HEMOGLOBIN A1c 6.8 % (4.0-6.0)
== END ==
LOC: M SFHCCLAY 09:45
PROVIDERS: ATTEND Nurse Practitioner Family
DX: I48.91 Unspecified atrial fibrillation (principal); E11.9 Type 2 diabetes mellitus without complications; E83.42 Hypomagnesemia; I10 Essential (primary) hypertension

== ENCOUNTER → 2024-05-05 | Outpatient (REF) | payer OTHER, MEDICARE | LOC: M SFHCCLAY 14:36 | PROVIDERS: ATTEND Physician Assistant | DX: R30.0 Dysuria (principal) ==

== ENCOUNTER → 2024-06-19 | Outpatient (REF) | payer OTHER, MEDICARE | LOC: M LAB REF 16:50 | PROVIDERS: ATTEND Neuromusculoskeletal Medicine, Sports Medicine | DX: M17.12 Unilateral primary osteoarthritis, left knee (principal) ==

== ENCOUNTER → 2024-06-19 | Outpatient (CLI) | payer OTHER, MEDICARE | LOC: M SOG 07:50 | PROVIDERS: ATTEND Physician Assistant | DX: M25.562 Pain in left knee (principal); Z53.9 Procedure and treatment not carried out, unspecified reason ==

== ENCOUNTER → 2024-06-20 | Outpatient (REF) | payer OTHER, MEDICARE | LOC: M SFHCCLAY 17:49 | PROVIDERS: ATTEND Physician Assistant | DX: R30.0 Dysuria (principal) ==

== ENCOUNTER → 2024-06-26 | Outpatient (REF) | payer OTHER ==
[2024-06-26 18:45] LABS: BASO # 0.1 10^3/uL (0.0-0.2); BASO % 0.6 % (0.0-1.0); EOS # 0.2 10^3/uL (0.0-0.5); EOS % 1.9 % (0.0-3.0); HEMATOCRIT 45.2 % (36.0-47.0); HEMOGLOBIN 13.6 g/dl (12.0-15.5); LYMPH # 1.9 10^3/uL (1.5-5.0); LYMPH % 21.2 % (24.0-44.0); MEAN CORPUSCULAR HEMOGLOBIN 23.8 pg (27.0-33.0); MEAN CORPUSCULAR HGB CONC 30.1 g/dl (32.0-36.5); MEAN CORPUSCULAR VOLUME 79.2 fl (80.0-96.0); MONO # 0.7 10^3/uL (0.0-0.8); MONO % 7.5 % (2.0-8.0); NEUTROPHILS # 6.1 10^3/uL (1.5-8.5); NEUTROPHILS % 68.6 % (36.0-66.0); PLATELET COUNT, AUTOMATED 276 10^3/uL (150-450); RED BLOOD COUNT 5.71 10^6/uL (4.00-5.40); WHITE BLOOD COUNT 8.8 10^3/uL (4.0-10.0)
[2024-06-26 18:46] LABS: ALBUMIN 3.4 G/DL (3.2-5.2); BILIRUBIN,TOTAL 0.4 MG/DL (0.3-1.2); CALCIUM LEVEL 9.6 MG/DL (8.3-10.6); CHOLESTEROL RISK RATIO 3.32 (<5); CREATININE FOR GFR 0.94 MG/DL (0.55-1.30); FREE T4 1.53 NG/DL (0.89-1.76); GLOMERULAR FILTRATION RATE 64.9 (>39); HDL CHOLESTEROL 44.5 MG/DL (>40); LDL CHOLESTEROL 73.3 MG/DL (<100); NON-HDL-C 103.5 MG/DL; POTASSIUM SERUM 4.3 MMOL/L (3.5-5.1); THYROID STIMULATING HORMONE 0.565 uIU/ML (0.55-4.78); TOTAL PROTEIN 7.7 G/DL (5.7-8.2)
[2024-06-26 19:09] LABS: HEMOGLOBIN A1c 7.1 % (4.0-6.0)
== END ==
LOC: M SFHCCLAY 09:42
PROVIDERS: ATTEND Nurse Practitioner Family
DX: E78.5 Hyperlipidemia, unspecified (principal); I48.91 Unspecified atrial fibrillation; Z12.31 Encounter for screening mammogram for malignant neoplasm of breast; R09.89 Other specified symptoms and signs involving the circulatory and respiratory systems; J44.9 Chronic obstructive pulmonary disease, unspecified; E11.9 Type 2 diabetes mellitus without complications; E83.42 Hypomagnesemia; I10 Essential (primary) hypertension

== ENCOUNTER → 2024-08-29 | Outpatient (CLI) | payer OTHER ==
[~2024-08-29] MED LIST changes: -BIOT1000 PO; +BIOT10002 PO
== END ==
LOC: M RAD 14:19
PROVIDERS: ATTEND Nurse Practitioner Family
DX: N20.0 Calculus of kidney (principal)

== ENCOUNTER → 2024-09-22 | Outpatient (REF) | payer OTHER ==
[2024-09-22 17:34] LABS: APPEARANCE, URINE CLOUDY (CLEAR); BACTERIA, URINE AUTO NEGATIVE (NEGATIVE); BILIRUBIN, URINE AUTO NEGATIVE (NEGATIVE); BLOOD, URINE BLOOD 1+ (NEGATIVE); GLUCOSE, URINE (UA) AUTO NEGATIVE (NEGATIVE); KETONE, URINE AUTO NEGATIVE (NEGATIVE); LEUKOCYTE ESTERASE, URINE AUTO 3+ (NEGATIVE); MUCUS, URINE SMALL (NEGATIVE); NITRITE, URINE AUTO NEGATIVE (NEGATIVE); PROTEIN, URINE AUTO NEGATIVE (NEGATIVE); RBC, URINE AUTO 16 /HPF (0-3); SPECIFIC GRAVITY URINE AUTO 1.013 (1.002-1.035); SQUAMOUS EPITHELIAL CELL UR AU 0 /HPF (0-6); TRANSITIONAL EPITHELIAL AUTO <1 /HPF; UROBILINOGEN, URINE AUTO 0.2 mg/dL (0.0-2.0); WBC, URINE AUTO TNTC /HPF (0-3)
== END ==
LOC: M SFHCCLAY 11:45
PROVIDERS: ATTEND Nurse Practitioner Family
DX: N39.0 Urinary tract infection, site not specified (principal)

== ENCOUNTER → 2024-10-12 | Outpatient (REF) | payer OTHER ==
[2024-10-12 15:14] LABS: AMORPHOUS SEDIMENT SMALL (NEGATIVE); APPEARANCE, URINE CLOUDY (CLEAR); BACTERIA, URINE AUTO NEGATIVE (NEGATIVE); BILIRUBIN, URINE AUTO NEGATIVE (NEGATIVE); BLOOD, URINE BLOOD 1+ (NEGATIVE); GLUCOSE, URINE (UA) AUTO NEGATIVE (NEGATIVE); KETONE, URINE AUTO NEGATIVE (NEGATIVE); LEUKOCYTE ESTERASE, URINE AUTO 3+ (NEGATIVE); NITRITE, URINE AUTO NEGATIVE (NEGATIVE); PROTEIN, URINE AUTO 1+ mg/dL (NEGATIVE); RBC, URINE AUTO 9 /HPF (0-3); SPECIFIC GRAVITY URINE AUTO 1.014 (1.002-1.035); SQUAMOUS EPITHELIAL CELL UR AU 0 /HPF (0-6); UROBILINOGEN, URINE AUTO 0.2 mg/dL (0.0-2.0); WBC, URINE AUTO TNTC /HPF (0-3)
== END ==
LOC: M SMT 14:48
PROVIDERS: ATTEND Nurse Practitioner Family
DX: N39.0 Urinary tract infection, site not specified (principal)

== ENCOUNTER → 2024-10-16 | Outpatient (REF) | payer OTHER ==
[2024-10-16 18:37] LABS: CALCIUM LEVEL 9.9 MG/DL (8.3-10.6); CARBON DIOXIDE LEVEL 30.0 MMOL/L (20-31); CHLORIDE LEVEL 103.0 MMOL/L (98-107); CREATININE FOR GFR 0.87 MG/DL (0.55-1.30); GLOMERULAR FILTRATION RATE 71.2 (>39); POTASSIUM SERUM 4.5 MMOL/L (3.5-5.1); SODIUM LEVEL 143.0 MMOL/L (136-145)
== END ==
LOC: M SFHCCLAY 10:33
PROVIDERS: ATTEND Nurse Practitioner Family
DX: N39.0 Urinary tract infection, site not specified (principal)

== ENCOUNTER → 2024-10-16 | Outpatient (REF) | payer OTHER ==
[2024-10-16 18:38] LABS: CHOLESTEROL LEVEL 152.0 MG/DL (<200); CHOLESTEROL RISK RATIO 3.6 (<5); LDL CHOLESTEROL 75.6 MG/DL (<100); NON-HDL-C 109.8 MG/DL; TRIGLYCERIDES LEVEL 171.0 MG/DL (<150)
== END ==
LOC: M LABDRAWC 17:15
PROVIDERS: ATTEND Nurse Practitioner Family
DX: E78.2 Mixed hyperlipidemia (principal); N39.0 Urinary tract infection, site not specified

== ENCOUNTER → 2024-10-27 | Outpatient (REF) | payer OTHER ==
[~2024-10-27] MED LIST changes: +ACET650T61 PO; +CLOP75TA2 PO; +LEVA45AE INH; +METF-838 PO; +METH-855 PO; +OXYB10TA23 PO; +PANT40TA29 PO; +POTA99TA10 PO; +ROSU20TA86 PO; +SPIR12.9 INH; +WARF-23 PO; +[UNRECOGNIZED DRUG - OTHER] PO
[2024-10-27 18:07] LABS: APPEARANCE, URINE CLOUDY (CLEAR); BACTERIA, URINE AUTO 1+ (NEGATIVE); BILIRUBIN, URINE AUTO NEGATIVE (NEGATIVE); BLOOD, URINE BLOOD 1+ (NEGATIVE); GLUCOSE, URINE (UA) AUTO NEGATIVE (NEGATIVE); KETONE, URINE AUTO NEGATIVE (NEGATIVE); LEUKOCYTE ESTERASE, URINE AUTO 3+ (NEGATIVE); MUCUS, URINE SMALL (NEGATIVE); NITRITE, URINE AUTO NEGATIVE (NEGATIVE); PROTEIN, URINE AUTO 1+ mg/dL (NEGATIVE); RBC, URINE AUTO 17 /HPF (0-3); SPECIFIC GRAVITY URINE AUTO 1.013 (1.002-1.035); SQUAMOUS EPITHELIAL CELL UR AU 0 /HPF (0-6); UROBILINOGEN, URINE AUTO 0.2 mg/dL (0.0-2.0); WBC, URINE AUTO TNTC /HPF (0-3)
== END ==
LOC: M SFHCCLAY 10:45
PROVIDERS: ATTEND Nurse Practitioner Family
DX: N39.0 Urinary tract infection, site not specified (principal)

== ENCOUNTER 2024-10-30 11:59 | Inpatient (IN) | payer OTHER ==
[~2024-10-30] VITALS: Ht 160 cm; Wt 96.0 kg
[2024-10-30] MEDS: PANTOPRAZOLE 40MG TAB PO SCH (09:00)
[~2024-10-30 11:59] MED LIST changes: -ACET650T61 PO; -ACIDCAP; -CLOP75TA2 PO; -LEVA45AE INH; -METF-838 PO; -METH-855 PO; -OXYB10TA23 PO; -PANT40TA29 PO; -POTA99TA10 PO; -ROSU20TA86 PO; -SPIR12.9 INH; -WARF-23 PO; +[UNRECOGNIZED DRUG - OTHER]; -[UNRECOGNIZED DRUG - OTHER] PO
[2024-10-30] MEDS ORDERED: OXYB10TA23 PO (12:11)
[2024-10-30] MEDS ORDERED: METH-1100 PO (12:11)
[2024-10-30] MEDS ORDERED: ACET650T61 PO (12:11)
[2024-10-30] MEDS ORDERED: CLOP75TA2 PO (12:11)
[2024-10-30] MEDS ORDERED: WARF-23 PO ×2 (12:11→13:33)
[2024-10-30] MEDS ORDERED: METF-838 PO (12:11)
[2024-10-30] MEDS ORDERED: ROSU20TA86 PO (12:11)
[2024-10-30] MEDS ORDERED: PANT40TA29 PO (12:11)
[2024-10-30 12:48] LABS: BASO # 0.0 10^3/uL (0.0-0.2); BASO % 0.5 % (0.0-1.0); EOS # 0.2 10^3/uL (0.0-0.5); EOS % 2.4 % (0.0-3.0); LYMPH # 1.6 10^3/uL (1.5-5.0); LYMPH % 19.6 % (24.0-44.0); MONO # 0.7 10^3/uL (0.0-0.8); MONO % 8.3 % (2.0-8.0); NEUTROPHILS # 5.7 10^3/uL (1.5-8.5); NEUTROPHILS % 69.0 % (36.0-66.0); PLATELET COUNT, AUTOMATED 231 10^3/uL (150-450)
[2024-10-30 13:11] LABS: CALCIUM LEVEL 10.1 MG/DL (8.3-10.6); CARBON DIOXIDE LEVEL 26.0 MMOL/L (20-31); CHLORIDE LEVEL 104.0 MMOL/L (98-107); CREATININE FOR GFR 0.81 MG/DL (0.55-1.30); GLOMERULAR FILTRATION RATE 77.6 (>39); POTASSIUM SERUM 5.0 MMOL/L (3.5-5.1); SODIUM LEVEL 142.0 MMOL/L (136-145)
[2024-10-30 13:12] LABS: KETONE, URINE MANUAL REFLEX NEGATIVE (NEGATIVE); NITRITE, URINE MANUAL RFX POSITIVE (NEGATIVE); PROTEIN, URINE MANUAL REFLEX 2+ mg/dL (NEGATIVE); SP GRAVITY,URINE MANUAL REFLEX 1.020 (1.002-1.035); UROBILINOGEN, UA MANUAL REFLEX NORMAL (NORMAL)
[2024-10-30 13:14] LABS: WBC, URINE MAN RFX 40-50 /hpf (0-3)
[2024-10-30 13:15] LABS: SQUAMOUS EPITHELIAL URINE RFX SMALL AMOUNT /hpf (SMALL AMT)
[2024-10-30 13:16] LABS: HYALINE CAST, URINE RFX NONE SEEN /lpf (0-1)
[2024-10-30 13:18] LABS: MICROSCOPIC EXAM RFX UNSPUN
[2024-10-30] MEDS ORDERED: LEVA45AE INH (13:36)
[2024-10-30] MEDS ORDERED: SPIR12.9 INH (13:36)
[2024-10-30] MEDS ORDERED: POTA99TA10 PO (13:39)
[2024-10-30] MEDS ORDERED: [UNRECOGNIZED DRUG - OTHER] PO (13:39)
[2024-10-30] MEDS ORDERED: HOME MED LIST COMPLETE! XX SCH (13:40)
[2024-10-30] MEDS: NS (Normal Saline) 0.9% 1,000 ML IV ONE (13:58)
[2024-10-30] MEDS: PIPERACILLIN/TAZOBACTAM SOD 2.25 GM in DEXTROSE 5% (D5W) ADV/MINI-BAG 50 ML IV ONE (14:11)
[2024-10-30 15:18] LABS: INR 2.09
[2024-10-30] MEDS: WARFARIN SOD 5MG TAB PO SCH (16:36)
[2024-10-30 18:00] VITALS: BP 150/72; TEMP 97.5; O2SAT 95
[2024-10-30] MEDS: PIPERACILLIN/TAZOBACTAM SOD 4.5 GM in DEXTROSE 5% (D5W) ADV/MINI-BAG 50 ML IV SCH (18:16)
[2024-10-30 19:40] VITALS: BP 150/67; TEMP 97.3; O2SAT 90
[2024-10-30] MEDS: ROSUVASTATIN 10 MG TAB PO SCH (22:18)
[2024-10-30] MEDS: oxyBUTYnin *XL* 5 MG TAB PO SCH (22:18)
[2024-10-30] MEDS: CLOPIDOGREL 75 MG TAB PO SCH (22:18)
[2024-10-30] MEDS: ACETAMINOPHEN 325 MG TAB PO PRN (22:19)
[2024-10-30] MEDS: DOCUSATE SODIUM 100 MG CAPSULE PO SCH (22:19)
[2024-10-31 04:15] VITALS: BP 138/58; TEMP 98.1; O2SAT 89
[2024-10-31 06:45] LABS: BASO # 0.0 10^3/uL (0.0-0.2); BASO % 0.4 % (0.0-1.0); EOS # 0.2 10^3/uL (0.0-0.5); EOS % 3.2 % (0.0-3.0); LYMPH # 1.2 10^3/uL (1.5-5.0); LYMPH % 15.7 % (24.0-44.0); MONO # 0.7 10^3/uL (0.0-0.8); MONO % 9.8 % (2.0-8.0); NEUTROPHILS # 5.3 10^3/uL (1.5-8.5); NEUTROPHILS % 70.6 % (36.0-66.0); PLATELET COUNT, AUTOMATED 233 10^3/uL (150-450)
[2024-10-31 06:56] LABS: INR 2.25
[2024-10-31 07:13] LABS: CALCIUM LEVEL 9.1 MG/DL (8.3-10.6); CARBON DIOXIDE LEVEL 28.0 MMOL/L (20-31); CHLORIDE LEVEL 105.0 MMOL/L (98-107); CREATININE FOR GFR 0.88 MG/DL (0.55-1.30); GLOMERULAR FILTRATION RATE 70.2 (>39); POTASSIUM SERUM 3.9 MMOL/L (3.5-5.1); SODIUM LEVEL 143.0 MMOL/L (136-145)
[2024-10-31] MEDS: TIOTROPIUM BROM 2.5MCG/ACTUATION 4GM INH INH SCH (07:42)
[2024-10-31] MEDS: dilTIAZem 120 MG **CD** CAPSULE PO SCH (08:07)
[2024-10-31 12:00] VITALS: BP 142/74; TEMP 97.9; O2SAT 93
[2024-10-31 20:29] VITALS: BP 144/77; TEMP 97.5; O2SAT 93
[2024-11-01 04:23] VITALS: BP 147/75; TEMP 97.5; O2SAT 96
[2024-11-01 04:28] VITALS: BP 116/68; TEMP 97.3; O2SAT 94
[2024-11-01 06:30] LABS: BASO # 0.0 10^3/uL (0.0-0.2); BASO % 0.5 % (0.0-1.0); EOS # 0.4 10^3/uL (0.0-0.5); EOS % 5.1 % (0.0-3.0); LYMPH # 1.7 10^3/uL (1.5-5.0); LYMPH % 21.9 % (24.0-44.0); MONO # 0.7 10^3/uL (0.0-0.8); MONO % 9.5 % (2.0-8.0); NEUTROPHILS # 4.9 10^3/uL (1.5-8.5); NEUTROPHILS % 62.6 % (36.0-66.0); PLATELET COUNT, AUTOMATED 243 10^3/uL (150-450)
[2024-11-01 06:42] LABS: INR 2.27
[2024-11-01 06:59] LABS: CALCIUM LEVEL 9.3 MG/DL (8.3-10.6); CARBON DIOXIDE LEVEL 27.0 MMOL/L (20-31); CHLORIDE LEVEL 105.0 MMOL/L (98-107); CREATININE FOR GFR 1.0 MG/DL (0.55-1.30); GLOMERULAR FILTRATION RATE 60.2 (>39); POTASSIUM SERUM 4.0 MMOL/L (3.5-5.1); SODIUM LEVEL 143.0 MMOL/L (136-145)
[2024-11-01 12:00] VITALS: BP 139/79; TEMP 97.7; O2SAT 94
[2024-11-01 19:27] VITALS: BP 148/84; TEMP 97.7; O2SAT 92
[2024-11-02 03:39] VITALS: BP 135/73; TEMP 97.2; O2SAT 88
[2024-11-02 07:32] LABS: INR 2.25
[2024-11-02] MEDS ORDERED: LEVALBUTEROL HFA 45 MCG/ACT 15 GM INHALER INH PRN (07:40)
[2024-11-02 09:03] LABS: CALCIUM LEVEL 9.4 MG/DL (8.3-10.6); CARBON DIOXIDE LEVEL 24.0 MMOL/L (20-31); CHLORIDE LEVEL 106.0 MMOL/L (98-107); CREATININE FOR GFR 0.92 MG/DL (0.55-1.30); GLOMERULAR FILTRATION RATE 66.6 (>39); MAGNESIUM LEVEL 1.8 MG/DL (1.8-2.4); POTASSIUM SERUM 4.1 MMOL/L (3.5-5.1); SODIUM LEVEL 142.0 MMOL/L (136-145)
[2024-11-02 11:56] VITALS: BP 130/75; TEMP 97.7; O2SAT 93
[2024-11-02 19:51] VITALS: BP 132/76; TEMP 97.5; O2SAT 95
[2024-11-03 03:26] VITALS: BP 131/72; TEMP 97.5; O2SAT 90
[2024-11-03 07:50] LABS: INR 2.4
[2024-11-03 07:54] LABS: CALCIUM LEVEL 9.1 MG/DL (8.3-10.6); CARBON DIOXIDE LEVEL 26.0 MMOL/L (20-31); CHLORIDE LEVEL 106.0 MMOL/L (98-107); CREATININE FOR GFR 0.88 MG/DL (0.55-1.30); GLOMERULAR FILTRATION RATE 70.2 (>39); MAGNESIUM LEVEL 1.8 MG/DL (1.8-2.4); POTASSIUM SERUM 4.0 MMOL/L (3.5-5.1); SODIUM LEVEL 143.0 MMOL/L (136-145)
[2024-11-03 08:00] VITALS: BP 130/70; TEMP 97.7; O2SAT 96
[2024-11-03 09:55] LABS: BASO # 0.0 10^3/uL (0.0-0.2); BASO % 0.3 % (0.0-1.0); EOS # 0.4 10^3/uL (0.0-0.5); EOS % 4.6 % (0.0-3.0); LYMPH # 1.5 10^3/uL (1.5-5.0); LYMPH % 15.6 % (24.0-44.0); MONO # 0.9 10^3/uL (0.0-0.8); MONO % 9.2 % (2.0-8.0); NEUTROPHILS # 6.5 10^3/uL (1.5-8.5); NEUTROPHILS % 70.0 % (36.0-66.0); PLATELET COUNT, AUTOMATED 272 10^3/uL (150-450)
[2024-11-03 11:26] LABS: APPEARANCE, URINE HAZY (CLEAR); BACTERIA, URINE AUTO 1+ (NEGATIVE); BILIRUBIN, URINE AUTO NEGATIVE (NEGATIVE); BLOOD, URINE BLOOD 1+ (NEGATIVE); GLUCOSE, URINE (UA) AUTO 2+ mg/dL (NEGATIVE); KETONE, URINE AUTO NEGATIVE (NEGATIVE); LEUKOCYTE ESTERASE, URINE AUTO 2+ (NEGATIVE); NITRITE, URINE AUTO NEGATIVE (NEGATIVE); PROTEIN, URINE AUTO NEGATIVE (NEGATIVE); RBC, URINE AUTO 11 /HPF (0-3); SPECIFIC GRAVITY URINE AUTO 1.015 (1.002-1.035); SQUAMOUS EPITHELIAL CELL UR AU 0 /HPF (0-6); UROBILINOGEN, URINE AUTO 0.2 mg/dL (0.0-2.0); WBC, URINE AUTO TNTC /HPF (0-3)
[2024-11-03] MEDS: PHENAZOPYRIDINE 100 MG TAB PO ONE (11:41)
[2024-11-03] MEDS: PHENAZOPYRIDINE 100 MG TAB PO SCH (17:48)
[2024-11-03] MEDS: WARFARIN SOD 2.5MG TAB PO SCH (17:48)
[2024-11-03 19:39] VITALS: BP 133/67; TEMP 97.5; O2SAT 94
[2024-11-04 04:11] VITALS: BP 133/66; TEMP 97.7; O2SAT 90
[2024-11-04 08:03] VITALS: BP 129/66
[2024-11-04 09:28] LABS: CALCIUM LEVEL 9.6 MG/DL (8.3-10.6); CARBON DIOXIDE LEVEL 28.0 MMOL/L (20-31); CHLORIDE LEVEL 103.0 MMOL/L (98-107); CREATININE FOR GFR 0.87 MG/DL (0.55-1.30); GLOMERULAR FILTRATION RATE 71.2 (>39); MAGNESIUM LEVEL 2.0 MG/DL (1.8-2.4); POTASSIUM SERUM 4.0 MMOL/L (3.5-5.1); SODIUM LEVEL 142.0 MMOL/L (136-145)
[2024-11-04 11:38] VITALS: BP 134/64; TEMP 97.7; O2SAT 92
== END 2024-11-04 13:20 | disposition home or self-care (01) | DRG 690 ==
LOC: M ED 11:59 → M ED INP 14:19 → M MSPAV 17:31
PROVIDERS: ADMIT Internal Medicine Nephrology; ATTEND Student in an Organized Health Care Education/Training Program
DX: N39.0 Urinary tract infection, site not specified (principal); J44.9 Chronic obstructive pulmonary disease, unspecified; K21.9 Gastro-esophageal reflux disease without esophagitis; E11.9 Type 2 diabetes mellitus without complications; I48.91 Unspecified atrial fibrillation; I10 Essential (primary) hypertension; B96.5 Pseudomonas (aeruginosa) (mallei) (pseudomallei) as the cause of diseases classified elsewhere; N30.10 Interstitial cystitis (chronic) without hematuria; B96.1 Klebsiella pneumoniae [K. pneumoniae] as the cause of diseases classified elsewhere; E66.9 Obesity, unspecified; Z91.030 Bee allergy status; Z88.8 Allergy status to other drugs, medicaments and biological substances; Z79.899 Other long term (current) drug therapy; Z79.01 Long term (current) use of anticoagulants; Z86.16 Personal history of COVID-19; Z96.642 Presence of left artificial hip joint; Z87.891 Personal history of nicotine dependence; Z87.442 Personal history of urinary calculi

== ENCOUNTER → 2025-01-10 | Outpatient (REF) | payer OTHER ==
[~2025-01-10] MED LIST changes: +ACET650T61 PO; +CLOP75TA2 PO; +LEVA45AE INH; +METF-838 PO; +METH-1100 PO; +OXYB10TA23 PO; +PANT40TA29 PO; +POTA99TA10 PO; +ROSU20TA86 PO; +SPIR12.9 INH; +WARF-23 PO; +[UNRECOGNIZED DRUG - OTHER] PO
[2025-01-10 17:46] LABS: APPEARANCE, URINE CLOUDY (CLEAR); BACTERIA, URINE AUTO 1+ (NEGATIVE); BILIRUBIN, URINE AUTO NEGATIVE (NEGATIVE); BLOOD, URINE BLOOD 1+ (NEGATIVE); GLUCOSE, URINE (UA) AUTO NEGATIVE (NEGATIVE); KETONE, URINE AUTO NEGATIVE (NEGATIVE); LEUKOCYTE ESTERASE, URINE AUTO 2+ (NEGATIVE); MUCUS, URINE SMALL (NEGATIVE); NITRITE, URINE AUTO NEGATIVE (NEGATIVE); PROTEIN, URINE AUTO NEGATIVE (NEGATIVE); RBC, URINE AUTO 14 /HPF (0-3); SPECIFIC GRAVITY URINE AUTO 1.012 (1.002-1.035); SQUAMOUS EPITHELIAL CELL UR AU 0 /HPF (0-6); UROBILINOGEN, URINE AUTO 0.2 mg/dL (0.0-2.0); WBC, URINE AUTO TNTC /HPF (0-3)
== END ==
LOC: M SMT 17:13
PROVIDERS: ATTEND Urology
DX: Z87.440 Personal history of urinary (tract) infections (principal); Z79.899 Other long term (current) drug therapy